=== PATIENT | female | born 1980 | race Caucasian/White ===

== ENCOUNTER 2016-12-01 09:57 | Emergency (ER) | payer MEDICAID ==
[~2016-12-01] VITALS: Ht 170.2 cm; Wt 78.0 kg
[~2016-12-01 09:57] MED LIST: CLON.5 PO; CYCL1TAB29 PO; METF500T PO; NAPR500T PO
[2016-12-01 10:02] VITALS: BP 122/86; PULSE 91; RESP 16; TEMP 98.4; O2SAT 97
[2016-12-01] MEDS ORDERED: HYDR-3533 PO (10:39)
[2016-12-01] MEDS ORDERED: SODIUM CHLOR 0.9% 1000 ML INJ 1,000 ML IV SCH (10:58)
[2016-12-01] MEDS ORDERED: SODIUM CHLORIDE 0.9% FLUSH 5 ML FLUSH IVF PRN (11:00)
[2016-12-01] MEDS ORDERED: ONDANSETRON HCL 4 MG/2 ML VIAL IVP ONE (11:00)
[2016-12-01] MEDS ORDERED: KETOROLAC TROMETHAMINE 30 MG/ML (IVP) VIAL IVP ONE (11:00)
[2016-12-01] MEDS ORDERED: MORPHINE SULFATE 4 MG/ML INJ IV PUSH ONE ×2 (11:00→12:15)
--- NOTE | 2016-12-01 11:02 | PD ---
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 The patient states she developed abdominal pain last night , and abdominal pain is located suprapubic and right lower quadrant, radiates to the right upper quadrant, associated with nausea, but she denies any vomiting. The patient denies any vaginal discharge, dysuria, frequency, urgency , or vaginal bleeding. The patient does have an IUD in place, last missed a cycle was 4 years ago. Patient is . Patient did eat cookies last night, but does not have much of an appetite this morning. She does have a history of previous section, denies any known history of gallstones. She does have a history of nephrolithiasis with different symptoms in the past. Symptoms are moderate, there are no current alleviating or exacerbating factors. PFSH Past Medical History Anxiety: Yes Diabetes: Yes Patient Takes Glucophage: Yes ?: Not LMP: IUD-DOES NOT GET Past Surgical History Section: Yes Social History Alcohol Use: Yes Tobacco Use: Yes Substance Use: No Allergies-Medications (Allergen,Severity, Reaction): Coded Allergies: Latex (Verified Allergy, Severe, 12/01/16) Reported Meds & Prescriptions Reported Meds & Active Scripts Active Metformin (Metformin HCl) 500 Mg Tab 500 Mg PO DIRECTED Take daily with evening meal. May advance to taking twice a day (w/ morning meal) after two weeks. Klonopin (Clonazepam) 0.5 Mg Tab 0.5 Mg PO HS Reported Lortab (Hydrocodone-Acetaminophen) 5-325 Mg Tab 1 Tab PO Q4H PRN Review of Systems Except as stated in HPI: all other systems reviewed are Neg General / Constitutional: No: Fever Cardiovascular: No: Chest Pain or Discomfort Respiratory: No: Shortness of Breath Gastrointestinal: Positive: Nausea, Abdominal Pain, No: Vomiting, Diarrhea Genitourinary: Positive: Pelvic Pain, No: Urgency, Frequency, Dysuria, Hematuria, Discharge, Vaginal Bleeding Skin: No Rash Physical Exam Narrative GENERAL: Awake, alert, pleasant 36-year-old female who appears her stated age and is in no acute respiratory distress. SKIN: Warm and dry. HEAD: Atraumatic. Normocephalic. EYES: No injection or drainage. ENT: No nasal bleeding or discharge. Mucous membranes pink and moist. NECK: Trachea midline. No JVD. CARDIOVASCULAR: Regular rate and rhythm. No murmur appreciated. RESPIRATORY: No accessory muscle use. Clear to auscultation. Breath sounds equal bilaterally. GASTROINTESTINAL: Abdomen soft, tender palpation right lower quadrant and suprapubic. Mild guarding. No rebound tenderness or rigidity noted. Back: No CVA tenderness. MUSCULOSKELETAL: No obvious deformities. No clubbing. No cyanosis. No edema. NEUROLOGICAL: Awake and alert. No obvious cranial nerve deficits. Motor grossly within normal limits. Normal speech. PSYCHIATRIC: Appropriate mood and affect; insight and judgment normal. Data Data Last Documented VS Vital Signs Date Time Temp Pulse Resp B/P Pulse Ox O2 Delivery O2 Flow Rate FiO2 12/01/16 11:45 99 Room Air 12/01/16 10:02 98.4 91 16 122/86 Orders Complete Blood Count With Diff (12/01/16 10:58) Comprehensive Metabolic Panel (12/01/16 10:58) Lipase (12/01/16 10:58) Urinalysis - C+S If Indicated (12/01/16 10:58) Ct Abd/Pel W/O Iv Contrast (12/01/16 10:58) Iv Access Insert/Monitor (12/01/16 10:58) Ecg Monitoring (12/01/16 10:58) Oximetry (12/01/16 10:58) Morphine Inj (Morphine Inj) (12/01/16 11:00) Ondansetron Inj (Zofran Inj) (12/01/16 11:00) Sodium Chlor 0.9% 1000 Ml Inj (Ns 1000 M (12/01/16 10:58) Sodium Chloride 0.9% Flush (Ns Flush) (12/01/16 11:00) Ketorolac Inj (Toradol Inj) (12/01/16 11:00) Ed Urine Pregnancytest Poc (12/01/16 10:58) Urine Culture (12/01/16 11:15) Wet Prep Profile (12/01/16 12:04) Morphine Inj (Morphine Inj) (12/01/16 12:15) Labs Laboratory Tests Test 12/01/16 12/01/16 11:15 12:17 White Blood Count 10.3 TH/MM3 Red Blood Count 4.59 MIL/MM3 Hemoglobin 14.0 GM/DL Hematocrit 41.3 % Mean Corpuscular Volume 90.1 FL Mean Corpuscular Hemoglobin 30.6 PG Mean Corpuscular Hemoglobin 34.0 % Concent Red Cell Distribution Width 11.8 % Platelet Count 275 TH/MM3 Mean Platelet Volume 8.2 FL Neutrophils (%) (Auto) 65.4 % Lymphocytes (%) (Auto) 26.7 % Monocytes (%) (Auto) 5.0 % Eosinophils (%) (Auto) 2.3 % Basophils (%) (Auto) 0.6 % Neutrophils # (Auto) 6.7 TH/MM3 Lymphocytes # (Auto) 2.8 TH/MM3 Monocytes # (Auto) 0.5 TH/MM3 Eosinophils # (Auto) 0.2 TH/MM3 Basophils # (Auto) 0.1 TH/MM3 CBC Comment DIFF FINAL Differential Comment Urine Color YELLOW Urine Turbidity CLEAR Urine pH 5.5 Urine Specific [place] 1.021 Urine Protein NEG mg/dL Urine Glucose (UA) NEG mg/dL Urine Ketones NEG mg/dL Urine Occult Blood NEG Urine Nitrite POS Urine Bilirubin NEG Urine Leukocyte Esterase NEG Urine WBC 0-2 /hpf Urine Squamous Epithelial 0-5 /hpf Cells Urine Bacteria MOD /hpf Urine Mucus OCC /lpf Microscopic Urinalysis Comment CULTURE INDICATED Sodium Level 141 MEQ/L Potassium Level 4.0 MEQ/L Chloride Level 106 MEQ/L Carbon Dioxide Level 28.8 MEQ/L Anion Gap 6 MEQ/L Blood Urea Nitrogen 17 MG/DL Creatinine 1.00 MG/DL Estimat Glomerular Filtration 63 ML/MIN Rate Random Glucose 138 MG/DL Calcium Level 8.8 MG/DL Total Bilirubin 0.5 MG/DL Aspartate Amino Transf 13 U/L (AST/SGOT) Alanine Aminotransferase 40 U/L (ALT/SGPT) Alkaline Phosphatase 92 U/L Total Protein 7.4 GM/DL Albumin 3.9 GM/DL Lipase 118 U/L Clue Cells (Wet Prep) PRESENT Vaginal Trichomonas (Wet Prep) NONE SEEN Vaginal Yeast (Wet Prep) NONE SEEN MDM Medical Decision Making Medical Screen Exam Complete: Yes Emergency Medical Condition: Yes Medical Record Reviewed: Yes Interpretation(s) Laboratory Tests Test 12/01/16 12/01/16 11:15 12:17 White Blood Count 10.3 TH/MM3 Red Blood Count 4.59 MIL/MM3 Hemoglobin 14.0 GM/DL Hematocrit 41.3 % Mean Corpuscular Volume 90.1 FL Mean Corpuscular Hemoglobin 30.6 PG Mean Corpuscular Hemoglobin 34.0 % Concent Red Cell Distribution Width 11.8 % Platelet Count 275 TH/MM3 Mean Platelet Volume 8.2 FL Neutrophils (%) (Auto) 65.4 % Lymphocytes (%) (Auto) 26.7 % Monocytes (%) (Auto) 5.0 % Eosinophils (%) (Auto) 2.3 % Basophils (%) (Auto) 0.6 % Neutrophils # (Auto) 6.7 TH/MM3 Lymphocytes # (Auto) 2.8 TH/MM3 Monocytes # (Auto) 0.5 TH/MM3 Eosinophils # (Auto) 0.2 TH/MM3 Basophils # (Auto) 0.1 TH/MM3 CBC Comment DIFF FINAL Differential Comment Urine Color YELLOW Urine Turbidity CLEAR Urine pH 5.5 Urine Specific [place] 1.021 Urine Protein NEG mg/dL Urine Glucose (UA) NEG mg/dL Urine Ketones NEG mg/dL Urine Occult Blood NEG Urine Nitrite POS Urine Bilirubin NEG Urine Leukocyte Esterase NEG Urine WBC 0-2 /hpf Urine Squamous Epithelial 0-5 /hpf Cells Urine Bacteria MOD /hpf Urine Mucus OCC /lpf Microscopic Urinalysis Comment CULTURE INDICATED Sodium Level 141 MEQ/L Potassium Level 4.0 MEQ/L Chloride Level 106 MEQ/L Carbon Dioxide Level 28.8 MEQ/L Anion Gap 6 MEQ/L Blood Urea Nitrogen 17 MG/DL Creatinine 1.00 MG/DL Estimat Glomerular Filtration 63 ML/MIN Rate Random Glucose 138 MG/DL Calcium Level 8.8 MG/DL Total Bilirubin 0.5 MG/DL Aspartate Amino Transf 13 U/L (AST/SGOT) Alanine Aminotransferase 40 U/L (ALT/SGPT) Alkaline Phosphatase 92 U/L Total Protein 7.4 GM/DL Albumin 3.9 GM/DL Lipase 118 U/L Clue Cells (Wet Prep) PRESENT Vaginal Trichomonas (Wet Prep) NONE SEEN Vaginal Yeast (Wet Prep) NONE SEEN Differential Diagnosis Differential diagnosis includes appendicitis, ovarian torsion, ovarian cyst, ectopic , pyelonephritis, nephrolithiasis, UTI, PID, cervicitis. Narrative Course IV was established, labs are drawn and sent, and the patient was placed on cardiac telemetry monitoring and continuous pulse oximetry monitoring. Bedside UA test was obtained and UA was sent to lab. The patient was administered morphine, Zofran, Toradol, and IV fluids for her symptoms. Laboratory evaluation is essentially unremarkable. UA does reveal nitrites and bacteria, but no wbc's. CT of the abdomen and pelvis is negative, no evidence of appendicitis, nephrolithiasis, diverticulitis, or free fluid. Pelvic exam was performed, IUD appears in place, cervical os is closed with IUD string visible, brown discharge in the posterior vaginal vault, wet prep was sent to lab. Wet prep is positive for bacterial vaginosis, therefore, patient will be treated with Flagyl twice a day. She is advised no drinking alcohol while on Flagyl, pain medications as directed, to follow-up with her primary physician. The patient will be provided a copy of her CT and lab results at discharge. Diagnosis Primary Impression: Bacterial vaginosis Additional Impression: Abdominal pain Qualified Code: R10.30 - Lower abdominal pain Patient Instructions: General Instructions Additional Instructions: Medications as directed. Follow-up with her primary physician. Return if symptoms worsen or progress. Med/Other Pt SpecificInfo: Prescription(s) given Scripts Hydrocodone-Acetaminophen ([place])5-325 mg Tab1 Tab PO Q6H PRN (PAIN) #12 TAB Ref 0 Prov:Dean Alejandre MD 12/01/16 Ibuprofen 600 Mg [id number] Mg PO Q6H PRN (Pain/Inflammation) #20 TAB Ref 0 Prov:Dean Alejandre MD 12/01/16 Metronidazole (Flagyl)500 Mg [id number] Mg PO BID 7 Days Ref 0 Prov:Dean Alejandre MD 12/01/16 Disposition: 01 DISCHARGE HOME Condition: Stable Dean Alejandre MD Dec 01, 2016 11:02
[2016-12-01 11:36] LABS: AUTOMATED NEUTROPHIL # 6.7 TH/MM3 (1.8-7.7); BASOPHIL # 0.1 TH/MM3 (0-0.2); BASOPHIL % 0.6 % (0.0-2.0); EOSINOPHIL # 0.2 TH/MM3 (0-0.4); EOSINOPHIL % 2.3 % (0.0-4.0); HEMATOCRIT 41.3 % (35.0-46.0); HEMO FLAGS DIFF FINAL; LYMPH % 26.7 % (9.0-44.0); LYMPHOCYTE # 2.8 TH/MM3 (1.0-4.8); MEAN CELL VOLUME 90.1 FL (80.0-100.0); MEAN CORPUSCULAR HEMOGLOBIN 30.6 PG (27.0-34.0); NEUT % 65.4 % (16.0-70.0); PLATELET COUNT 275 TH/MM3 (150-450); RED BLOOD COUNT 4.59 MIL/MM3 (4.00-5.30); RED CELL DISTRIBUTION WIDTH 11.8 % (11.6-17.2); WHITE BLOOD COUNT 10.3 TH/MM3 (4.0-11.0)
[2016-12-01 11:38] LABS: BLOOD, URINE NEG (NEG); GLUCOSE,URINE NEG (NEG); KETONE, URINE NEG (NEG); NITRITE,URINE POS (NEG); PH, URINE 5.5 (5.0-8.5)
[2016-12-01 11:39] LABS: URINE COLOR YELLOW (YELLW/STRAW)
[2016-12-01 11:43] LABS: MUCUS URINE OCC /lpf (OCC); WBC, URINE 0-2 /hpf (0-5)
[2016-12-01 11:44] LABS: BACTERIA, URINE MOD /hpf; COMMENT (UR) CULTURE INDICATED; CULTURE IF INDICATED CULTURE INDICATED; SQUAMOUS EPITHELIAL CELL URINE 0-5 /hpf (0-5)
[2016-12-01 11:45] VITALS: O2SAT 99
[2016-12-01 11:46] LABS: CHLORIDE 106 MEQ/L (98-107); SODIUM (NA) 141 MEQ/L (136-145)
--- NOTE | 2016-12-01 11:49 | RADHPO ---
EXAM DATE/TIME: 12/01/2016 11:23 [facility] COMPARISON: No previous studies available for comparison. INDICATIONS : Lower abdominal pain and nausea since yesterday. ORAL CONTRAST: No oral contrast ingested. RADIATION DOSE: 9.51 CTDIvol (mGy) MEDICAL HISTORY : Diabetes. SURGICAL HISTORY : section. IUD. ENCOUNTER: Initial ACUITY: 2 days PAIN SCALE: 3/10 LOCATION: Lower quadrant TECHNIQUE: Volumetric scanning of the abdomen and pelvis was performed. Using automated exposure control and ad justment of the mA and/or kV according to patient size, radiation dose was kept as low as reasonably achievable to obtain optimal diagnostic quality images. FINDINGS: The lung bases are clear. There is no pericardial effusion. The liver, spleen, pancreas and adrenal glands are unremarkable. Right and left kidneys appear normal. Region of the cecum and terminal ileum appear unremarkable. There is a normal sized appendix. Pelvic contents are normal. IUD is in place. There is no evidence for diverticulitis. Abdominal wall is intact. There is no free fluid. Bowel gas pattern is unremarkable. CONCLUSION: 1. IUD in place. 2. I do not see an etiology for the patient's abdominal pain and nausea. Dino Fatima MD FACR on December 01, 2016 at 11:42 Board Certified Radiologist. This report was verified electronically.
[2016-12-01 11:50] LABS: ANION GAP 6 MEQ/L (5-15); BICARBONATE 28.8 MEQ/L (21.0-32.0); BLOOD UREA NITROGEN 17 MG/DL (7-18)
[2016-12-01 11:53] LABS: ALT (GPT) 40 U/L (10-53); AST (GOT) 13 U/L (15-37); GLOMERULAR FILTRATION RATE 63 ML/MIN (>89)
[2016-12-01 11:54] LABS: TOTAL BILIRUBIN ADULT 0.5 MG/DL (0.2-1.0)
[2016-12-01 11:56] LABS: ALKALINE PHOSPHATASE 92 U/L (45-117)
[2016-12-01] MEDS ORDERED: METR-1 PO (12:51)
[2016-12-01] MEDS ORDERED: IBUP-232 PO (12:51)
[2016-12-01] MEDS ORDERED: NORC5TAB PO (12:51)
[2016-12-01 13:43] VITALS: BP 100/65
[2016-12-06] MEDS ORDERED: CLON.5 PO (17:42)
[2017-02-03] MEDS ORDERED: SITA1TAB2 PO (16:03)
[2017-02-03] MEDS ORDERED: DULO1CAP2 PO (16:09)
[2017-02-03] MEDS ORDERED: CLON1TAB PO (16:11)
[2017-02-24] MEDS ORDERED: CITA20TA4 PO (15:56)
[2017-03-03] MEDS ORDERED: CITA20TA4 PO (15:30)
== END 2016-12-01 14:04 | disposition home or self-care (01) ==
LOC: PHED 09:57
DX: N76.0 Acute vaginitis (principal); B96.20 Unspecified Escherichia coli [E. coli] as the cause of diseases classified elsewhere; R10.30 Lower abdominal pain, unspecified; R11.0 Nausea
CPT/HCPCS: 74176; 80053; 81001; 83690; 84703; 85025; 87077; 87086; 87186; 87210; 96374; 96375; 96376; 99284; J1885; J2270; J2405; J7030

== ENCOUNTER 2017-01-02 10:25 | Emergency (ER) | payer MEDICAID ==
[~2017-01-02] VITALS: Ht 170.2 cm; Wt 76.5 kg
[~2017-01-02 10:25] MED LIST changes: -CYCL1TAB29 PO; +IBUP-232 PO; +METR-1 PO; -NAPR500T PO
[2017-01-02 10:29] VITALS: BP 151/117; PULSE 101; RESP 18; TEMP 98.6; O2SAT 97
[2017-01-02] MEDS ORDERED: SODIUM CHLOR 0.9% 1000 ML INJ 1,000 ML IV SCH (11:00)
[2017-01-02] MEDS ORDERED: ERYTOIN10 LEFT EYE (11:09)
[2017-01-02] MEDS ORDERED: NAPR500 PO (11:09)
[2017-01-02] MEDS ORDERED: ZITHTAB PO (11:09)
--- NOTE | 2017-01-02 11:09 | PD ---
HPI Chief Complaint: Cold / Flu Symptoms Time Seen by Provider: 10:34 Travel History International Travel<30 days: No Contact w/Intl Traveler<30days: No Traveled to known affect area: No History of Present Illness HPI So 36-year-old woman who presents to the emergency department complaining of being sick for the past month and a half. She started to develop cough, sore throat a little bit of fevers initially. Fevers are resolved. She has persistent hard cough. She also has a lot of congestion. Cough is productive of thick phlegm. She also developed some right flank pain this morning. She lost her voice today. She has some vomiting in the morning that she attributes to the thick phlegm. She otherwise has been feeling generally ill. Today she also started to get some irritation and inflammation in her left eye. No sick contacts. Only medical history is diabetes. No other complaints. History Past Medical History Narrative Medical Diabetes Tetanus Vaccination: Unknown Influenza Vaccination: No LMP: IUD/not menstruating Social History Alcohol Use: Yes (Rarely) Tobacco Use: Yes (1/2 PPD) Allergies-Medications (Allergen,Severity, Reaction): Coded Allergies: Latex (Verified Allergy, Severe, 01/02/17) Reported Meds & Prescriptions Reported Meds & Active Scripts Active Erythromycin Opth Oint 5 Mg/Gm Oint 1 Applic LEFT EYE QID Zithromax Z-Nahun (Azithromycin) 250 Mg Dspk 250 Mg PO DIRECTED 500 MG (2 tabs) day 1, then 1 tab days 2-5. Naprosyn (Naproxen) 500 Mg Tab 500 Mg PO BID PRN Metformin (Metformin HCl) 500 Mg Tab 500 Mg PO DIRECTED Take daily with evening meal. May advance to taking twice a day (w/ morning meal) after two weeks. Review of Systems Except as stated in HPI: all other systems reviewed are Neg Physical Exam Narrative GENERAL: Well-appearing 36-year-old woman, no acute distress. SKIN: Focused skin assessment warm/dry. HEAD: Atraumatic. Normocephalic. EYES: Left eye with a little bit of scleral injection. ENT: No nasal bleeding or discharge. Mucous membranes pink and moist. NECK: Trachea midline. No JVD. CARDIOVASCULAR: Regular rate and rhythm. No murmur appreciated. RESPIRATORY: No accessory muscle use. Clear to auscultation. Breath sounds equal bilaterally. GASTROINTESTINAL: Abdomen flat and soft. Some tenderness to palpation of the right costal margin. NEUROLOGICAL: Awake and alert. No obvious cranial nerve deficits. Motor grossly within normal limits. Normal speech. PSYCHIATRIC: Appropriate mood and affect; insight and judgment normal. Data Data Last Documented VS Vital Signs Date Time Temp Pulse Resp B/P Pulse Ox O2 Delivery O2 Flow Rate FiO2 01/02/17 10:35 101 18 97 Room Air 01/02/17 10:29 98.6 151/117 Orders Complete Blood Count With Diff (01/02/17 10:49) Comprehensive Metabolic Panel (01/02/17 10:49) Lipase (01/02/17 10:49) Iv Access Insert/Monitor (01/02/17 10:49) Beta Hcg (Quant/Titer) (01/02/17 10:49) Ed Poc Ultrasound (01/02/17 ) Chest, Pa & Lat (01/02/17 ) Sodium Chlor 0.9% 1000 Ml Inj (Ns 1000 M (01/02/17 11:00) Ketorolac Inj (Toradol Inj) (01/02/17 11:15) Labs Laboratory Tests Test 01/02/17 10:55 White Blood Count 14.2 TH/MM3 Red Blood Count 4.47 MIL/MM3 Hemoglobin 13.9 GM/DL Hematocrit 40.1 % Mean Corpuscular Volume 89.7 FL Mean Corpuscular Hemoglobin 31.0 PG Mean Corpuscular Hemoglobin 34.6 % Concent Red Cell Distribution Width 11.8 % Platelet Count 277 TH/MM3 Mean Platelet Volume 8.3 FL Neutrophils (%) (Auto) 72.8 % Lymphocytes (%) (Auto) 20.7 % Monocytes (%) (Auto) 5.1 % Eosinophils (%) (Auto) 1.1 % Basophils (%) (Auto) 0.3 % Neutrophils # (Auto) 10.4 TH/MM3 Lymphocytes # (Auto) 2.9 TH/MM3 Monocytes # (Auto) 0.7 TH/MM3 Eosinophils # (Auto) 0.2 TH/MM3 Basophils # (Auto) 0.0 TH/MM3 CBC Comment DIFF FINAL Differential Comment Sodium Level 140 MEQ/L Potassium Level 4.0 MEQ/L Chloride Level 105 MEQ/L Carbon Dioxide Level 24.0 MEQ/L Anion Gap 11 MEQ/L Blood Urea Nitrogen 16 MG/DL Creatinine 0.93 MG/DL Estimat Glomerular Filtration 68 ML/MIN Rate Random Glucose 155 MG/DL Calcium Level 9.0 MG/DL Total Bilirubin 0.7 MG/DL Aspartate Amino Transf 17 U/L (AST/SGOT) Alanine Aminotransferase 45 U/L (ALT/SGPT) Alkaline Phosphatase 102 U/L Total Protein 7.5 GM/DL Albumin 3.9 GM/DL Lipase 123 U/L Human Chorionic Gonadotropin, LESS THAN 1 Quant MIU/ML MDM Medical Decision Making Medical Screen Exam Complete: Yes Emergency Medical Condition: Yes Interpretation(s) LABS: CBC remarkable for mild leukocytosis. CMP is unremarkable. Lipase is normal HCG negative Chest x-ray negative Differential Diagnosis URI, cough, congestion, bronchitis, other Narrative Course Medical decision making 36-year-old woman presents to the emergency department complaining of a month and a half of cough congestion sore throat associated with now some loss of voice and some mild conjunctival injection. Suspect bronchitis and upper respiratory infection. Symptoms been ongoing for month and a half. She has some tenderness in the right upper quadrant. I checked an ultrasound the gallbladder which is unremarkable. We'll check an x-ray, labs, IV fluids, likely antibiotic treatment for acute bronchitis. We'll give her prescription for erythromycin of her conjunctivitis symptoms worsen. Diagnosis Primary Impression: Bronchitis Additional Instructions: Take Naprosyn as needed for pain and body aches. Take azithromycin as prescribed. Use erythromycin eye ointment if you have any worsening eye redness, or eye drainage. Drink plenty of fluids stay well-hydrated. Return to the emergency department new or worsening symptoms. Follow-up with your primary doctor in 1-10 days every not feeling completely well. Med/Other Pt SpecificInfo: Prescription(s) given Scripts Erythromycin Opth Oint 5 Mg/Gm Oint1 Applic LEFT EYE QID #1 TUBE Prov:Jesse Browning MD 01/02/17 Azithromycin (Zithromax Z-Nahun)250 Mg [id number] Mg PO DIRECTED #1 DSPK 500 MG (2 tabs) day 1, then 1 tab days 2-5. Prov:Jesse Browning MD 01/02/17 Naproxen (Naprosyn)500 Mg [id number] Mg PO BID PRN (PAIN SCALE 1 TO 10) #20 TAB Prov:Jesse Browning MD 01/02/17 Disposition: 01 DISCHARGE HOME Condition: Stable Jesse Browning MD Jan 02, 2017 11:09
[2017-01-02] MEDS ORDERED: KETOROLAC TROMETHAMINE 30 MG/ML (IVP) VIAL IV PUSH ONE (11:15)
--- NOTE | 2017-01-02 11:24 | RADHPO ---
EXAM DATE/TIME: 01/02/2017 10:54 [facility] COMPARISON: CHEST SINGLE AP, December 05, 2015, 19:41. INDICATIONS : Shortness of breath, cough. MEDICAL HISTORY : Diabetes mellitus type II. Smoker. SURGICAL HISTORY : None. ENCOUNTER: Initial ACUITY: 1 month PAIN SCORE: 0/10 LOCATION: Bilateral chest FINDINGS: PA and lateral views of the chest demonstrate a normal-sized cardiac silhouette. There is no effusion , consolidation, or pneumothorax. The bones and soft tissues demonstrate no acute abnormality. CONCLUSION: Normal chest x-ray Owen Lund MD on January 02, 2017 at 11:22 Board Certified Radiologist. This report was verified electronically.
[2017-01-02 11:41] LABS: AUTOMATED NEUTROPHIL # 10.4 TH/MM3 (1.8-7.7); BASOPHIL % 0.3 % (0.0-2.0); EOSINOPHIL # 0.2 TH/MM3 (0-0.4); EOSINOPHIL % 1.1 % (0.0-4.0); HEMATOCRIT 40.1 % (35.0-46.0); HEMO FLAGS DIFF FINAL; LYMPH % 20.7 % (9.0-44.0); LYMPHOCYTE # 2.9 TH/MM3 (1.0-4.8); MEAN CELL VOLUME 89.7 FL (80.0-100.0); MEAN CORPUSCULAR HGB CONC 34.6 % (32.0-36.0); MONO % 5.1 % (0.0-8.0); NEUT % 72.8 % (16.0-70.0); PLATELET COUNT 277 TH/MM3 (150-450); RED BLOOD COUNT 4.47 MIL/MM3 (4.00-5.30); RED CELL DISTRIBUTION WIDTH 11.8 % (11.6-17.2); WHITE BLOOD COUNT 14.2 TH/MM3 (4.0-11.0)
[2017-01-02 11:43] LABS: CHLORIDE 105 MEQ/L (98-107); SODIUM (NA) 140 MEQ/L (136-145)
[2017-01-02 11:47] LABS: ANION GAP 11 MEQ/L (5-15); BLOOD UREA NITROGEN 16 MG/DL (7-18)
[2017-01-02 11:50] LABS: ALT (GPT) 45 U/L (10-53); AST (GOT) 17 U/L (15-37); GLOMERULAR FILTRATION RATE 68 ML/MIN (>89)
[2017-01-02 11:51] LABS: TOTAL BILIRUBIN ADULT 0.7 MG/DL (0.2-1.0)
[2017-01-02 11:53] LABS: ALKALINE PHOSPHATASE 102 U/L (45-117)
[2017-01-02 11:55] LABS: BETA HCG QUANT LESS THAN 1 MIU/ML (0-5)
[2017-01-02 12:10] VITALS: BP 125/67; PULSE 76; RESP 16; O2SAT 100
[2017-02-03] MEDS ORDERED: SITA1TAB2 PO (16:03)
[2017-02-03] MEDS ORDERED: DULO1CAP2 PO (16:09)
[2017-02-03] MEDS ORDERED: CLON1TAB PO (16:11)
[2017-02-24] MEDS ORDERED: CITA20TA4 PO (15:56)
[2017-03-03] MEDS ORDERED: CITA20TA4 PO (15:30)
== END 2017-01-02 12:15 | disposition home or self-care (01) ==
LOC: PHED 10:25
DX: J40 Bronchitis, not specified as acute or chronic (principal); R06.02 Shortness of breath; E11.9 Type 2 diabetes mellitus without complications; F17.210 Nicotine dependence, cigarettes, uncomplicated
CPT/HCPCS: 71020; 80053; 83690; 84702; 85025; 96361; 96374; 99283; J1885; J7030

== ENCOUNTER 2017-02-21 22:45 | Emergency (ER) | payer MEDICAID ==
[~2017-02-21] VITALS: Ht 167.6 cm; Wt 85.0 kg
[~2017-02-21 22:45] MED LIST changes: -CLON.5 PO; +CLON1TAB PO; +DULO1CAP2 PO; -IBUP-232 PO; -METF500T PO; -METR-1 PO; +NAPR500 PO; +SITA1TAB2 PO
[2017-02-21 23:07] VITALS: BP 127/86; PULSE 112; RESP 18; TEMP 98.2; O2SAT 98
--- NOTE | 2017-02-21 23:14 | PD ---
HPI . Head injury Chief Complaint: head injury Time Seen by Provider: 23:02 Travel History International Travel<30 days: No Contact w/Intl Traveler<30days: No History of Present Illness HPI Patient presents to us via [facility] after a reported head injury. She states that she was standing on her bed and she fell and struck her head on the ceiling fan. She has reportedly had several syncopal events since this. The patient is very angry and is not willing to cooperate for history and physical. Family reports that the patient old gun to her head threatening to kill herself. Family further reports that she took too many of her benzodiazepine pills. PFSH Past Medical History Hx Anticoagulant Therapy: No Anxiety: Yes Diabetes: Yes (Type 2) Past Surgical History Section: Yes Social History Alcohol Use: Yes (Rarely) Tobacco Use: Yes (1/2 PPD) Substance Use: No Allergies-Medications (Allergen,Severity, Reaction): Coded Allergies: Latex (Verified Allergy, Severe, 02/03/17) Reported Meds & Prescriptions Reported Meds & Active Scripts Active Januvia (Sitagliptin Phosphate) 100 Mg Tab 100 Mg PO DAILY Reported Klonopin (Clonazepam) 0.5 Mg Tab 0.5 Mg PO HS Review of Systems ROS Limitations: Uncooperative Physical Exam Narrative GENERAL: The patient is awake and alert. She is very angry and uncooperative. SKIN: Warm and dry. Some superficial scrapes noted on the left wrist. HEAD: Contusion palpated on the left side of her scalp. Normocephalic. EYES: Pupils equal and round. Extraocular movements are intact. ENT: No nasal bleeding or discharge. Mucous membranes pink and moist. NECK: Trachea midline. Neck is currently immobilized with a cervical collar. CARDIOVASCULAR: Regular rate and rhythm. Heart sounds are normal. RESPIRATORY: No accessory muscle use. GASTROINTESTINAL: Abdomen soft, non-tender, nondistended. MUSCULOSKELETAL: No obvious deformities. No edema. She does have some tenderness to percussion in her low back. NEUROLOGICAL: Awake and alert. No obvious cranial nerve deficits. Moves all 4 extremities equally. PSYCHIATRIC: Very angry and uncooperative. Patient denies any homicidal or suicidal ideation. Data Data Last Documented VS Vital Signs Date Time Temp Pulse Resp B/P Pulse Ox O2 Delivery O2 Flow Rate FiO2 02/22/17 01:34 58 18 121/76 98 Room Air 02/21/17 23:07 98.2 Orders Complete Blood Count With Diff (02/21/17 23:02) Comprehensive Metabolic Panel (02/21/17 23:02) Psych Screen (02/21/17 23:02) Restraints Non-Violent JEREMIAH.Q3H (02/21/17 23:02) Drug Screen, Random Urine (02/21/17 23:02) Alcohol (Ethanol) (02/21/17 23:02) Ct Brain W/O Iv Contrast(Rout) (02/21/17 23:02) Ct Cerv Spine W/O Contrast (02/21/17 23:02) Ed Urine Pregnancytest Poc (02/21/17 23:02) Urinalysis - C+S If Indicated (02/22/17 00:13) Labs Laboratory Tests Test 02/21/17 23:10 White Blood Count 22.5 TH/MM3 Red Blood Count 4.64 MIL/MM3 Hemoglobin 14.5 GM/DL Hematocrit 42.2 % Mean Corpuscular Volume 90.8 FL Mean Corpuscular Hemoglobin 31.3 PG Mean Corpuscular Hemoglobin 34.5 % Concent Red Cell Distribution Width 12.8 % Platelet Count 243 TH/MM3 Mean Platelet Volume 9.1 FL Neutrophils (%) (Auto) 84.8 % Lymphocytes (%) (Auto) 9.4 % Monocytes (%) (Auto) 5.0 % Eosinophils (%) (Auto) 0.5 % Basophils (%) (Auto) 0.3 % Neutrophils # (Auto) 19.0 TH/MM3 Lymphocytes # (Auto) 2.1 TH/MM3 Monocytes # (Auto) 1.1 TH/MM3 Eosinophils # (Auto) 0.1 TH/MM3 Basophils # (Auto) 0.1 TH/MM3 CBC Comment DIFF FINAL Differential Comment Urine Opiates Screen NEG Urine Barbiturates Screen NEG Urine Amphetamines Screen NEG Urine Benzodiazepines Screen NEG Urine Cocaine Screen NEG Urine Cannabinoids Screen NEG Urine Color YELLOW Urine Turbidity HAZY Urine pH 5.0 Urine Specific [place] 1.030 Urine Protein TRACE mg/dL Urine Glucose (UA) 1000 mg/dL Urine Ketones TRACE mg/dL Urine Occult Blood NEG Urine Nitrite NEG Urine Bilirubin NEG Urine Urobilinogen 2.0 MG/DL Urine Leukocyte Esterase NEG Urine RBC LESS THAN 1 /hpf Urine WBC 1 /hpf Urine Squamous Epithelial 1 /hpf Cells Urine Calcium Oxalate Crystals FEW /hpf Urine Mucus FEW /lpf Microscopic Urinalysis Comment CULT NOT INDICATED Sodium Level 140 MEQ/L Potassium Level 3.8 MEQ/L Chloride Level 106 MEQ/L Carbon Dioxide Level 23.3 MEQ/L Anion Gap 11 MEQ/L Blood Urea Nitrogen 18 MG/DL Creatinine 1.31 MG/DL Estimat Glomerular Filtration 46 ML/MIN Rate Random Glucose 205 MG/DL Calcium Level 9.1 MG/DL Total Bilirubin 0.6 MG/DL Aspartate Amino Transf 17 U/L (AST/SGOT) Alanine Aminotransferase 33 U/L (ALT/SGPT) Alkaline Phosphatase 105 U/L Total Protein 7.6 GM/DL Albumin 4.1 GM/DL Ethyl Alcohol Level LESS THAN 3 MG/DL MDM Medical Decision Making Medical Screen Exam Complete: Yes Emergency Medical Condition: Yes Differential Diagnosis My differential diagnosis of head trauma includes but is not limited to scalp contusion, concussion, intracerebral hemorrhage. Differential diagnosis includes but is not limited to depression with suicidal gesture, suicide attempt, suicidal ideation, attention seeking behavior. Narrative Course This patient presents with a chief complaint of head injury. She has reportedly had several episodes of syncope. She has also reportedly overdosed on a benzodiazepine. Furthermore, she has reportedly had a significant suicidal gesture in that she was holding rebound. She has also cut her left wrist. She is extremely angry and uncooperative. For these reasons, I have signed a Hair Act. CBC & BMP Diagram 02/21/17 23:10 UA and drug screen are negative. CT of her head and C-spine are negative. This patient is medically clear for psychiatric evaluation. Diagnosis Primary Impression: Scalp contusion Additional Impression: Suicide gesture Qualified Code: X83.8XXA - Suicide gesture, initial encounter Condition: Stable Nanda David MD Feb 21, 2017 23:14
[2017-02-21] MEDS ORDERED: CLON.5 PO (23:35)
[2017-02-21 23:46] LABS: BASOPHIL # 0.1 TH/MM3 (0-0.2); BASOPHIL % 0.3 % (0.0-2.0); EOSINOPHIL # 0.1 TH/MM3 (0-0.4); EOSINOPHIL % 0.5 % (0.0-4.0); HEMATOCRIT 42.2 % (35.0-46.0); HEMO FLAGS DIFF FINAL; LYMPH % 9.4 % (9.0-44.0); LYMPHOCYTE # 2.1 TH/MM3 (1.0-4.8); MEAN CELL VOLUME 90.8 FL (80.0-100.0); MEAN CORPUSCULAR HEMOGLOBIN 31.3 PG (27.0-34.0); MEAN CORPUSCULAR HGB CONC 34.5 % (32.0-36.0); NEUT % 84.8 % (16.0-70.0); PLATELET COUNT 243 TH/MM3 (150-450); RED BLOOD COUNT 4.64 MIL/MM3 (4.00-5.30); RED CELL DISTRIBUTION WIDTH 12.8 % (11.6-17.2); WHITE BLOOD COUNT 22.5 TH/MM3 (4.0-11.0)
[2017-02-21 23:55] LABS: AMPHETAMINE, URINE NEG (NEG); BARBITURATES, URINE NEG (NEG); COCAINE, URINE NEG (NEG)
[2017-02-22 00:04] LABS: ANION GAP 11 MEQ/L (5-15); AST (GOT) 17 U/L (15-37); BICARBONATE 23.3 MEQ/L (21.0-32.0); BLOOD UREA NITROGEN 18 MG/DL (7-18); CHLORIDE 106 MEQ/L (98-107); GLOMERULAR FILTRATION RATE 46 ML/MIN (>89); POTASSIUM 3.8 MEQ/L (3.5-5.1); SODIUM (NA) 140 MEQ/L (136-145)
[2017-02-22 00:06] LABS: ALT (GPT) 33 U/L (10-53)
[2017-02-22 00:07] LABS: ALKALINE PHOSPHATASE 105 U/L (45-117); TOTAL BILIRUBIN ADULT 0.6 MG/DL (0.2-1.0)
[2017-02-22 01:34] VITALS: BP 121/76; PULSE 58; RESP 18; O2SAT 98
[2017-02-22 01:43] LABS: BLOOD, URINE NEG (NEG); CALCIUM OXALATE CRYSTALS,URINE FEW /hpf; COMMENT (UR) CULT NOT INDICATED; CULTURE IF INDICATED CULT NOT INDICATED; GLUCOSE,URINE 1000 mg/dL (NEG); KETONE, URINE TRACE mg/dL (NEG); MUCUS URINE FEW /lpf (OCC); NITRITE,URINE NEG (NEG); SQUAMOUS EPITHELIAL CELL URINE 1 /hpf (0-5); URINE COLOR YELLOW (YELLW/STRAW)
--- NOTE | 2017-02-22 02:12 | RADRPT ---
EXAM DATE/TIME: 02/22/2017 01:54 [facility] COMPARISON: No previous studies available for comparison. INDICATIONS : Trauma, hit head. RADIATION DOSE: 56.35 CTDIvol (mGy) MEDICAL HISTORY : Diabetes mellitus type 2. SURGICAL HISTORY : section. ENCOUNTER: Initial ACUITY: 1 day PAIN SCALE: 8/10 LOCATION: cranial TECHNIQUE: Multiple contiguous axial images were obtained of the head. Using automated exposure control and adj ustment of the mA and/or kV according to patient size, radiation dose was kept as low as reasonably a chievable to obtain optimal diagnostic quality images. FINDINGS: There is no evidence for intracranial hemorrhage, mass effect, mass lesions, edema, or extra-axial fl uid collections. The visualized bony structures appear intact. The ventricles are normal size for t he patient's age. There are no signs of acute infarction for technique. CONCLUSION: Unremarkable study. Tacho Martin MD on February 22, 2017 at 2:09 Board Certified Radiologist. This report was verified electronically.
--- NOTE | 2017-02-22 02:14 | RADRPT ---
EXAM DATE/TIME: 02/22/2017 01:55 [facility] COMPARISON: No previous studies available for comparison. INDICATIONS : Trauma, hit head. RADIATION DOSE: 33.75 CTDIvol (mGy) MEDICAL HISTORY : Diabetes mellitus type 2. SURGICAL HISTORY : section. ENCOUNTER: Initial ACUITY: 1 day PAIN SCALE: 0/10 LOCATION: neck TECHNIQUE: Volumetric scanning of the cervical spine was performed. Multiplanar reconstructions in the sagittal, coronal and oblique axial planes were performed. Using automated exposure control and adjustment o f the mA and/or kV according to patient size, radiation dose was kept as low as reasonably achievable to obtain optimal diagnostic quality images. FINDINGS: No significant subluxation or soft tissue swelling is seen. No definite fracture is seen for techniqu e. C2-C3: No appreciable compromised to the thecal sac, exiting nerve roots are seen. The neural dev paul are patent bilaterally. No appreciable thecal sac stenosis is seen. C3-C4: No appreciable compromised to the thecal sac, exiting nerve roots are seen. The neural dev paul are patent bilaterally. No appreciable thecal sac stenosis is seen. C4-C5: No appreciable compromised to the thecal sac, exiting nerve roots are seen. The neural dev paul are patent bilaterally. No appreciable thecal sac stenosis is seen. C5-C6: No appreciable compromised to the thecal sac, exiting nerve roots are seen. The neural dev paul are patent bilaterally. No appreciable thecal sac stenosis is seen. C6-C7: No appreciable compromised to the thecal sac, exiting nerve roots are seen. The neural dev paul are patent bilaterally. No appreciable thecal sac stenosis is seen. C7-T1: No appreciable compromised to the thecal sac, exiting nerve roots are seen. The neural dev paul are patent bilaterally. No appreciable thecal sac stenosis is seen CONCLUSION: Unremarkable study. Tacho Martin MD on February 22, 2017 at 2:10 Board Certified Radiologist. This report was verified electronically.
[2017-02-22] MEDS ORDERED: clonazePAM 0.5 MG TAB PO ONE (10:00)
[2017-02-22 10:16] VITALS: BP 124/78; PULSE 96; RESP 18
--- NOTE | 2017-02-22 13:47 | PD ---
History of Present Illness Chief Complaint: Head Injury Time Seen by Provider: 13:30 Travel History International Travel<30 Days: No Contact w/Intl Traveler<30days: No Known affected area: No Legal Status Legal Status: Hair Act Hair Act Signed By: Lisbet Ferris History of Present Illness: This is a 36-year-old female who is very pleasant and wishing this physician would lift her Hair act to allow her to go home. This physician reviewed the Hair act with the patient and apparently there is no gun, according to the patient and the nurse, used in this reported suicide threat. At this time, the patient is calm and cooperative. She has no suicidal or homicidal ideation, plan or intent. She demonstrates no psychotic thinking and her cognition is intact. She is verbally elina for safety. She would like to be seen on an outpatient basis rather than admitted to the hospital. PFSH Past Medical History Hx Anticoagulant Therapy: No Anxiety: Yes Diabetes: Yes (Type 2) Patient Takes Glucophage: No Immunizations Current: No Tetanus Vaccination: > 5 Years Influenza Vaccination: No ?: Unknown Past Surgical History Section: Yes Psychiatric History Psychiatric History Hx Psychiatric Treatment: Patient denies any psych treatment. History of Inpatient Treatment: No Guns or firearms in home: No Social History Hx Alcohol Use: Yes (Rarely) Hx Tobacco Use: Yes (1/2 PPD) Hx Substance Use: No Hx of Substance Use Treatment: No Allergies-Medications (Allergen,Severity, Reaction): Coded Allergies: Latex (Verified Allergy, Severe, 02/03/17) Reported Meds & Prescriptions Reported Meds & Active Scripts Active Januvia (Sitagliptin Phosphate) 100 Mg Tab 100 Mg PO DAILY Reported Klonopin (Clonazepam) 0.5 Mg Tab 0.5 Mg PO HS Review of Systems Except as stated in HPI: all other systems reviewed are Neg Exam Alert: Yes [place]: Person, Place, Date, Situation Mood: Calm Affect: Appropriate, Euthymic Speech: Clear, Logical Eye Contact: Normal Memory Intact: Immediate, Recent, Remote, Comment Insight/Judgement Adequate [facility] Medical Decision Making Medical Record Reviewed: Yes Assessment/Plan Patient's Hair act is being lifted and she is being discharged home. She is cognitively intact, without suicidal or homicidal ideation or psychotic symptoms. She is competent to contract for safety. She is willing to be seen on an outpatient basis and therefore least restrictive alternative applies. Orders Complete Blood Count With Diff (02/21/17 23:02) Comprehensive Metabolic Panel (02/21/17 23:02) Psych Screen (02/21/17 23:02) Restraints Non-Violent JEREMIAH.Q3H (02/21/17 23:02) Drug Screen, Random Urine (02/21/17 23:02) Alcohol (Ethanol) (02/21/17 23:02) Ct Brain W/O Iv Contrast(Rout) (02/21/17 23:02) Ct Cerv Spine W/O Contrast (02/21/17 23:02) Ed Urine Pregnancytest Poc (02/21/17 23:02) Urinalysis - C+S If Indicated (02/22/17 00:13) Diet Diabetic (02/22/17 Breakfast) Diet Regular Basic (02/22/17 Dinner) Clonazepam (Klonopin) (02/22/17 10:00) Sitagliptin (Januvia) (02/22/17 10:00) Diet Regular Basic (02/22/17 Lunch) Results Vital Signs Date Time Temp Pulse Resp B/P Pulse Ox O2 Delivery O2 Flow Rate FiO2 02/22/17 10:16 96 18 124/78 Room Air 02/22/17 01:34 58 18 121/76 98 Room Air 02/21/17 23:07 98.2 112 18 127/86 98 Laboratory Tests Test 02/21/17 23:10 White Blood Count 22.5 Red Blood Count 4.64 Hemoglobin 14.5 Hematocrit 42.2 Mean Corpuscular Volume 90.8 Mean Corpuscular Hemoglobin 31.3 Mean Corpuscular Hemoglobin 34.5 Concent Red Cell Distribution Width 12.8 Platelet Count 243 Mean Platelet Volume 9.1 Neutrophils (%) (Auto) 84.8 Lymphocytes (%) (Auto) 9.4 Monocytes (%) (Auto) 5.0 Eosinophils (%) (Auto) 0.5 Basophils (%) (Auto) 0.3 Neutrophils # (Auto) 19.0 Lymphocytes # (Auto) 2.1 Monocytes # (Auto) 1.1 Eosinophils # (Auto) 0.1 Basophils # (Auto) 0.1 CBC Comment DIFF FINAL Differential Comment Urine Opiates Screen NEG Urine Barbiturates Screen NEG Urine Amphetamines Screen NEG Urine Benzodiazepines Screen NEG Urine Cocaine Screen NEG Urine Cannabinoids Screen NEG Urine Color YELLOW Urine Turbidity HAZY Urine pH 5.0 Urine Specific [place] 1.030 Urine Protein TRACE Urine Glucose (UA) 1000 Urine Ketones TRACE Urine Occult Blood NEG Urine Nitrite NEG Urine Bilirubin NEG Urine Urobilinogen 2.0 Urine Leukocyte Esterase NEG Urine RBC LESS THAN 1 Urine WBC 1 Urine Squamous Epithelial 1 Cells Urine Calcium Oxalate Crystals FEW Urine Mucus FEW Microscopic Urinalysis Comment CULT NOT INDICATED Sodium Level 140 Potassium Level 3.8 Chloride Level 106 Carbon Dioxide Level 23.3 Anion Gap 11 Blood Urea Nitrogen 18 Creatinine 1.31 Estimat Glomerular Filtration 46 Rate Random Glucose 205 Calcium Level 9.1 Total Bilirubin 0.6 Aspartate Amino Transf 17 (AST/SGOT) Alanine Aminotransferase 33 (ALT/SGPT) Alkaline Phosphatase 105 Total Protein 7.6 Albumin 4.1 Ethyl Alcohol Level LESS THAN 3 Diagnosis Primary Impression: Adjustment disorder with mixed disturbance of emotions and conduct Condition: Stable Melchor Waters MD Feb 22, 2017 13:47
[2017-02-22 14:36] VITALS: BP 132/68; TEMP 98
[2017-02-24] MEDS ORDERED: CITA20TA4 PO (15:56)
[2017-03-03] MEDS ORDERED: CITA20TA4 PO (15:30)
== END 2017-02-22 14:41 | disposition home or self-care (01) ==
LOC: NEPC 22:45 → NEPJ 02-22 14:41
DX: S00.03XA Contusion of scalp, initial encounter (principal); T42.4X2A Poisoning by benzodiazepines, intentional self-harm, initial encounter; F43.25 Adjustment disorder with mixed disturbance of emotions and conduct; F41.9 Anxiety disorder, unspecified; F17.210 Nicotine dependence, cigarettes, uncomplicated; W18.30XA Fall on same level, unspecified, initial encounter; Y92.003 Bedroom of unspecified non-institutional (private) residence as the place of occurrence of the external cause
CPT/HCPCS: 70450; 72125; 80053; 80307; 81001; 84703; 85025

== ENCOUNTER 2017-04-01 10:34 | Emergency (ER) | payer MEDICAID ==
[~2017-04-01] VITALS: Ht 170.2 cm; Wt 77.4 kg
[~2017-04-01 10:34] MED LIST changes: +CITA20TA4 PO; +CLON.5 PO; -CLON1TAB PO; -DULO1CAP2 PO; -NAPR500 PO
[2017-04-01 10:38] VITALS: BP 130/81; PULSE 94; RESP 16; TEMP 98.3; O2SAT 100
[2017-04-01 11:28] LABS: AUTOMATED NEUTROPHIL # 8.8 TH/MM3 (1.8-7.7); BASOPHIL % 0.3 % (0.0-2.0); EOSINOPHIL # 0.2 TH/MM3 (0-0.4); EOSINOPHIL % 1.7 % (0.0-4.0); HEMATOCRIT 42.8 % (35.0-46.0); HEMO FLAGS DIFF FINAL; LYMPH % 21.8 % (9.0-44.0); LYMPHOCYTE # 2.7 TH/MM3 (1.0-4.8); MEAN CELL VOLUME 91.4 FL (80.0-100.0); MEAN CORPUSCULAR HGB CONC 33.9 % (32.0-36.0); MONO % 5.5 % (0.0-8.0); NEUT % 70.7 % (16.0-70.0); PLATELET COUNT 266 TH/MM3 (150-450); RED BLOOD COUNT 4.68 MIL/MM3 (4.00-5.30); RED CELL DISTRIBUTION WIDTH 12.2 % (11.6-17.2); WHITE BLOOD COUNT 12.4 TH/MM3 (4.0-11.0)
--- NOTE | 2017-04-01 11:29 | PD ---
HPI Chief Complaint: Numbness/Tingling Time Seen by Provider: 10:45 Travel History International Travel<30 days: No Contact w/Intl Traveler<30days: No Traveled to known affect area: No History of Present Illness HPI PATIENT C/O NUMBNESS TO ENTIRE LUE FROM SHOULDER TO TIP OF ALL FINGERS, DENIES ANY TRAUMA. NONRADIATING, PATIENT STATED SHE SAW HER PCP AND NO WORKUP DONE, PT CONTINUES TO HAVE NUMBNESS AND TINGLING TO ENTIRE LUE. DENIES CP/SOB/COUGH/ URI SX/ PFSH Past Medical History Hx Anticoagulant Therapy: No Anxiety: Yes Diabetes: Yes Patient Takes Glucophage: No Diminished Hearing: No Immunizations Current: No Tetanus Vaccination: Unknown ?: Not Past Surgical History Section: Yes Social History Alcohol Use: Yes (Rarely) Tobacco Use: Yes (/ PPD) Substance Use: No Allergies-Medications (Allergen,Severity, Reaction): Coded Allergies: Latex (Verified Allergy, Severe, 04/01/17) Reported Meds & Prescriptions Reported Meds & Active Scripts Active Flexeril (Cyclobenzaprine HCl) 10 Mg Tab 10 Mg PO TID Codeine-Acetaminophen 30-300 mg Tab 1 Tab PO Q4H PRN Klonopin (Clonazepam) 0.5 Mg Tab 0.5 Mg PO HS Citalopram (Citalopram Hydrobromide) 20 Mg Tab 20 Mg PO DAILY Januvia (Sitagliptin Phosphate) 100 Mg Tab 100 Mg PO DAILY Review of Systems Except as stated in HPI: all other systems reviewed are Neg Neurologic: Positive: Paresthesia, Sensory Disturbance Physical Exam Narrative GENERAL: SKIN: Warm and dry. HEAD: Atraumatic. Normocephalic. EYES: Pupils equal and round. No scleral icterus. No injection or drainage. ENT: No nasal bleeding or discharge. Mucous membranes pink and moist. NECK: Trachea midline. No JVD. CARDIOVASCULAR: Regular rate and rhythm. RESPIRATORY: No accessory muscle use. Clear to auscultation. Breath sounds equal bilaterally. GASTROINTESTINAL: Abdomen soft, non-tender, nondistended. MUSCULOSKELETAL: Extremities without clubbing, cyanosis, or edema. No obvious deformities. NEUROLOGICAL: Awake and alert. No obvious cranial nerve deficits. Motor grossly within normal limits. Five out of 5 muscle strength in the arms and legs. Normal speech. HOWEVER, DECREASED SENSORY TO ENTIRE LUE, NO PARTICULAR DERMATOME PSYCHIATRIC: Appropriate mood and affect; insight and judgment normal. Data Data Last Documented VS Vital Signs Date Time Temp Pulse Resp B/P Pulse Ox O2 Delivery O2 Flow Rate FiO2 04/01/17 15:45 73 14 110/67 98 Room Air 04/01/17 10:38 98.3 Orders Complete Blood Count With Diff (04/01/17 11:07) Comprehensive Metabolic Panel (04/01/17 11:07) Troponin I (04/01/17 11:07) Thyroid Stimulating Hormone (04/01/17 11:07) Ct Brain W/O Iv Contrast(Rout) (04/01/17 ) Ed Urine Pregnancytest Poc (04/01/17 11:07) Electrocardiogram (04/01/17 11:07) Hydromorphone Pf Inj (Dilaudid Pf Inj) (04/01/17 11:30) Ondansetron Inj (Zofran Inj) (04/01/17 11:30) Mri C Spine W/O Contrast (04/01/17 ) Labs Laboratory Tests Test 04/01/17 11:20 White Blood Count 12.4 TH/MM3 Red Blood Count 4.68 MIL/MM3 Hemoglobin 14.5 GM/DL Hematocrit 42.8 % Mean Corpuscular Volume 91.4 FL Mean Corpuscular Hemoglobin 31.0 PG Mean Corpuscular Hemoglobin 33.9 % Concent Red Cell Distribution Width 12.2 % Platelet Count 266 TH/MM3 Mean Platelet Volume 7.8 FL Neutrophils (%) (Auto) 70.7 % Lymphocytes (%) (Auto) 21.8 % Monocytes (%) (Auto) 5.5 % Eosinophils (%) (Auto) 1.7 % Basophils (%) (Auto) 0.3 % Neutrophils # (Auto) 8.8 TH/MM3 Lymphocytes # (Auto) 2.7 TH/MM3 Monocytes # (Auto) 0.7 TH/MM3 Eosinophils # (Auto) 0.2 TH/MM3 Basophils # (Auto) 0.0 TH/MM3 CBC Comment DIFF FINAL Differential Comment Sodium Level 139 MEQ/L Potassium Level 3.9 MEQ/L Chloride Level 105 MEQ/L Carbon Dioxide Level 28.0 MEQ/L Anion Gap 6 MEQ/L Blood Urea Nitrogen 15 MG/DL Creatinine 1.00 MG/DL Estimat Glomerular Filtration 63 ML/MIN Rate Random Glucose 125 MG/DL Calcium Level 9.1 MG/DL Total Bilirubin 0.6 MG/DL Aspartate Amino Transf 18 U/L (AST/SGOT) Alanine Aminotransferase 41 U/L (ALT/SGPT) Alkaline Phosphatase 101 U/L Troponin I LESS THAN 0.02 NG/ML Total Protein 7.6 GM/DL Albumin 4.1 GM/DL Thyroid Stimulating Hormone 1.220 uIU/ML 3rd Gen [facility] Medical Decision Making Medical Screen Exam Complete: Yes Emergency Medical Condition: Yes Medical Record Reviewed: Yes Interpretation(s) NSR 83, NL INTERVALS, NO STEMI PATTERN Differential Diagnosis ATYPICAL STEMI V RADICULOPATHY V PARESTHESIA V NEUROPATHY Narrative Course EKG NEG FOR STEMI, NO ICH ON CT HEAD...NORMAL THYROID SCREENING, MRI PERFORMED NO OVERT CORD COMPRESSION FOUND HOWEVER NOTED INCIDENTAL THYROID NODULE THAT I MADE PATIENT AWARE OF FOR FURTHER FOLLOWUP AFTER COMPLETING EVALUATION WITH NEUROLOGIST. Physician Communication Physician Communication D/W DR WEEKS RADIOLOGIST, [facility] MRI OF CERVICAL SPINE FOR BEST STUDY Diagnosis Primary Impression: PROBABLE LEFT UPPER EXTREMITY RADICULOPATHY Referrals: Solomon Delacruz PhD MD FOR FURTHER EVALUATION Patient Instructions: Cervical Radiculopathy (ED), General Instructions Scripts Cyclobenzaprine (Flexeril)10 Mg Tab10 Mg PO TID #21 TAB Prov:Dorian Arriaza MD 04/01/17 Codeine-Acetaminophen 30-300 mg Tab1 Tab PO Q4H PRN (PAIN) #20 TAB Prov:Dorian Arriaza MD 04/01/17 Disposition: 01 DISCHARGE HOME Condition: Stable Dorian Arriaza MD Apr 01, 2017 11:29
[2017-04-01] MEDS ORDERED: ONDANSETRON HCL 4 MG/2 ML VIAL IVP ONE (11:30)
[2017-04-01] MEDS ORDERED: HYDROmorphone HCL PF 2 MG/ML VIAL IVS ONE (11:30)
[2017-04-01 11:35] VITALS: BP 100/74; PULSE 95; RESP 16; O2SAT 98
[2017-04-01 11:44] LABS: CHLORIDE 105 MEQ/L (98-107); POTASSIUM 3.9 MEQ/L (3.5-5.1); SODIUM (NA) 139 MEQ/L (136-145)
[2017-04-01 11:48] LABS: ANION GAP 6 MEQ/L (5-15); BLOOD UREA NITROGEN 15 MG/DL (7-18)
[2017-04-01 11:51] LABS: ALT (GPT) 41 U/L (10-53); AST (GOT) 18 U/L (15-37); GLOMERULAR FILTRATION RATE 63 ML/MIN (>89)
[2017-04-01 11:53] LABS: TOTAL BILIRUBIN ADULT 0.6 MG/DL (0.2-1.0)
[2017-04-01 11:54] LABS: ALKALINE PHOSPHATASE 101 U/L (45-117)
--- NOTE | 2017-04-01 12:45 | RADRPT ---
EXAM DATE/TIME: 04/01/2017 11:48 [facility] COMPARISON: CT CERVICAL SPINE W/O CONTRAST, February 22, 2017, 1:55. INDICATIONS : Parasthesia for 5 days. RADIATION DOSE: 63.43 CTDIvol (mGy) MEDICAL HISTORY : None SURGICAL HISTORY : None. ENCOUNTER: Initial ACUITY: 4 - 6 days PAIN SCALE: 3/10 LOCATION: Left arm TECHNIQUE: Multiple contiguous axial images were obtained of the head. Using automated exposure control and adj ustment of the mA and/or kV according to patient size, radiation dose was kept as low as reasonably a chievable to obtain optimal diagnostic quality images. DICOM format image data is available electro nically for review and comparison. FINDINGS: CEREBRUM: The ventricles are normal for age. No evidence of midline shift, mass lesion, hemorrhage or acute in farction. No extra-axial fluid collections are seen. POSTERIOR FOSSA: The cerebellum and brainstem are intact. The 4th ventricle is midline. The cerebellopontine angle i s unremarkable. EXTRACRANIAL: The visualized portion of the orbits is intact. SKULL: The calvaria is intact. No evidence of skull fracture. CONCLUSION: 1. Negative examination. Ahsan Fatima MD on April 01, 2017 at 12:28 Board Certified Radiologist. This report was verified electronically.
[2017-04-01 13:20] VITALS: BP 100/65; PULSE 85; RESP 16; O2SAT 98
--- NOTE | 2017-04-01 13:56 | RADRPT ---
EXAM DATE/TIME: 04/01/2017 13:06 [facility] COMPARISON: CT CERVICAL SPINE W/O CONTRAST, February 22, 2017, 1:55. INDICATIONS : Left arm numbness. MEDICAL HISTORY : Diabetes mellitus type 2. SURGICAL HISTORY : section. ENCOUNTER: Initial ACUITY: 2 weeks PAIN SCORE: 0/10 LOCATION: neck TECHNIQUE: Multiplanar, multisequence MRI examination of the cervical spine was performed. FINDINGS: VERTEBRAE: Normal vertebral body height. Homogeneous marrow signal. ALIGNMENT: There is straightening of the cervical spine with a gentle kyphosis. CORD: Normal configuration and signal. POST FOSSA: The cerebellar tonsils are normal in position. A 1.1 cm left lower pole thyroid nodule is noted. C2-C3: The thecal sac has a normal configuration. There is no evidence of disc herniation or spinal canal s tenosis. The neural foramina are patent bilaterally. C3-C4: There is a mild broad-based disc bulge. No flattening of the cord or central canal stenosis. Lateral recesses and neural foramina are patent. C4-C5: There is a mild broad-based disc bulge. No flattening of the cord or central canal stenosis. Lateral recesses and neural foramina are patent. C5-C6: A broad-based disc bulge mildly flattens the ventral portion of the cord. Anterior to posterior dimen brittny of the central canal in the midline is 8 mm. There is narrowing of the lateral recesses bilatera lly. Neural foramina are patent bilaterally. C6-C7: There is a mild broad-based disc bulge. No flattening of the cord or central canal stenosis. Lateral recesses and neural foramina are patent. C7-T1: The thecal sac has a normal configuration. There is no evidence of disc herniation or spinal canal s tenosis. The neural foramina are patent bilaterally. CONCLUSION: 1. 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 Patent neural foramina throughout. 2. 11 mm left thyroid nodule. Jesse Garcia Jr., MD on April 01, 2017 at 13:48 Board Certified Radiologist. This report was verified electronically.
[2017-04-01] MEDS ORDERED: CYCL1TAB29 PO (15:30)
[2017-04-01] MEDS ORDERED: CODE30TA2 PO (15:30)
[2017-04-01 15:45] VITALS: BP 110/67; PULSE 73; RESP 14; O2SAT 98
--- NOTE | 2017-04-01 16:16 | EKG ---
Date Performed: 04/01/2017 Time Performed: 11:24:17 PTAGE: 36 years EKG: Sinus rhythm NORMAL ECG NO PREVIOUS TRACING DOCTOR: Luis Dyson Interpretating Date/Time 04/01/2017 16:15:44
== END 2017-04-01 15:50 | disposition home or self-care (01) ==
LOC: PHED 10:34
DX: R20.2 Paresthesia of skin (principal); R20.0 Anesthesia of skin; E04.1 Nontoxic single thyroid nodule; E11.9 Type 2 diabetes mellitus without complications; F17.200 Nicotine dependence, unspecified, uncomplicated; Z79.84 Long term (current) use of oral hypoglycemic drugs
CPT/HCPCS: 70450; 72141; 80053; 84443; 84484; 84703; 85025; 93005; 96374; 96375; 99285; J1170; J2405

== ENCOUNTER 2017-07-13 08:25 | Emergency (ER) | payer MEDICAID ==
[~2017-07-13] VITALS: Ht 170.2 cm; Wt 80.0 kg
[~2017-07-13 08:25] MED LIST changes: +CODE30TA2 PO; +CYCL1TAB29 PO
[2017-07-13 08:28] VITALS: BP 181/109; PULSE 87; RESP 14; TEMP 98.4; O2SAT 99
[2017-07-13] MEDS ORDERED: PERI0.126 SWISH-SPIT (09:18)
[2017-07-13] MEDS ORDERED: IBUP800T23 PO (09:18)
[2017-07-13] MEDS ORDERED: AMOX500C PO (09:18)
--- NOTE | 2017-07-13 09:18 | PD ---
HPI Chief Complaint: Oral / Dental Pain or Problem Time Seen by Provider: 09:13 Travel History International Travel<30 days: No Contact w/Intl Traveler<30days: No Traveled to known affect area: No History of Present Illness HPI 36-year-old female presents emergency Department with complaint of left lower dental pain that started last night. Denies fever, vomiting. Denies difficulty swallowing, sore throat, unusual drooling. Pain radiates to her left ear. Has not taken any medication or turning treatments to alleviate her symptoms. Describes pain as stabbing, throbbing, aching, is shooting. Pain is 10/10. No known relieving factors. Pain is constant. Allergies to latex. Has no other medical complaints. No other modifying factors or associated signs and symptoms. PFSH Past Medical History Hx Anticoagulant Therapy: No Anxiety: Yes Diabetes: Yes Patient Takes Glucophage: No Diminished Hearing: No Immunizations Current: No Tetanus Vaccination: Unknown ?: Not Past Surgical History Section: Yes Social History Alcohol Use: Yes (Rarely) Tobacco Use: Yes (/ PPD) Substance Use: No Allergies-Medications (Allergen,Severity, Reaction): Coded Allergies: latex (Unverified Allergy, Severe, 07/13/17) Reported Meds & Prescriptions Reported Meds & Active Scripts Active Amoxicillin 500 Mg Cap 500 Mg PO BID 10 Days Peridex Liq (Chlorhexidine Gluconate (Mouth) Liq) 0.12% Soln 15 Ml SWISH-SPIT BID 10 Days Ibuprofen 800 Mg Tab 800 Mg PO Q6HR PRN Klonopin (Clonazepam) 0.5 Mg Tab 0.5 Mg PO HS Citalopram (Citalopram Hydrobromide) 20 Mg Tab 20 Mg PO DAILY Januvia (Sitagliptin Phosphate) 100 Mg Tab 100 Mg PO DAILY Review of Systems Except as stated in HPI: all other systems reviewed are Neg Physical Exam Narrative GENERAL: Well-nourished, well-developed female patient, in no acute distress; afebrile, nontoxic-appearing SKIN: Warm and dry. HEAD: Atraumatic. Normocephalic. No facial edema, erythema, tenderness on palpation. No lymphadenopathy. EYES: Pupils equal and round. No scleral icterus. No injection or drainage. ENT: Mucosa pink and moist. No erythema or exudates. No uvular edema. No uvular , palatal, or tonsillar deviation. Airway patent. EARS: Bilateral pinnae and external canals appear within normal limits. Bilateral tympanic membranes without erythema, dullness or perforation. MOUTH: Mucous membranes moist, no lesions, tongue and gums appear normal. Tooth #17 with tenderness on palpation. Surrounding gingiva is with edema; without erythema, drainage. No obvious abscess noted. NECK: Trachea midline. No lymphadenopathy. CARDIOVASCULAR: Regular rate. RESPIRATORY: No accessory muscle use. GASTROINTESTINAL: Round. MUSCULOSKELETAL: No obvious deformities. No clubbing. No cyanosis. No edema. NEUROLOGICAL: Awake and alert. Oriented 3. No obvious cranial nerve deficits. Motor grossly within normal limits. Normal speech. PSYCHIATRIC: Appropriate mood and affect; insight and judgment normal. Data Data Last Documented VS Vital Signs Date Time Temp Pulse Resp B/P (MAP) Pulse Ox O2 Delivery O2 Flow Rate FiO2 07/13/17 08:28 98.4 87 14 181/109 (133) 99 Orders Orders Ed Discharge Order (07/13/17 09:18) Ibuprofen (Motrin) (07/13/17 09:30) MDM Medical Decision Making Medical Screen Exam Complete: Yes Emergency Medical Condition: Yes Medical Record Reviewed: Yes Differential Diagnosis Dentalgia, dental abscess, impacted dentition, gingivitis Narrative Course 36-year-old female with dentalgia tooth #17. No obvious abscess noted. No facial edema, erythema. Patient is afebrile and nontoxic-appearing. Denies fever, vomiting. Emergency dental information sheet provided for follow-up. Ibuprofen administered in the ER. Amoxicillin, Peridex mouth rinse, ibuprofen prescribed for home. Instructed patient to follow up with primary care provider. Patient verbalizes understanding and agreement with treatment plan. Patient is medically cleared and stable for discharge. Discussed reasons to return to the emergency department. Patient agrees with treatment plan. The patients vital signs are stable and the patient is stable for outpatient follow- up and treatment. Patient discharged home, stable and in no acute distress. Diagnosis Primary Impression: Dentalgia Referrals: Dentist Primary Care Physician Patient Instructions: Dental Abscess (ED), Dental Caries (ED), General Instructions, Toothache (ED) Departure Forms: Tests/Procedures, Work Release Enter return to work date: Jul 13, 2017 Additional Instructions: Complete full course of antibiotics Ibuprofen or Tylenol as directed and as needed to reduce pain and inflammation Use Peridex as directed for oral hygiene Warm or cool compresses to the affected area Follow-up with dentist Follow-up with primary care provider Return to emergency department immediately with worsening of symptoms Med/Other Pt SpecificInfo: Prescription(s) given Scripts Amoxicillin (Amoxicillin) 500 Mg Cap 500 MG PO BID for Infection for 10 Days, #20 CAP 0 Refills Prov: Jodi Brothers 07/13/17 Chlorhexidine Gluconate (Mouth) Liq (Peridex Liq) 0.12% Soln 15 ML SWISH-SPIT BID for 10 Days, #300 ML 0 Refills Prov: Jodi Brothers 07/13/17 Ibuprofen (Ibuprofen) 800 Mg Tab 800 MG PO Q6HR Y for PAIN, #30 TAB 0 Refills Prov: Jodi Brothers 07/13/17 Disposition: 01 DISCHARGE HOME Condition: Stable Jodi Brothers Jul 13, 2017 09:18
[2017-07-13 09:24] VITALS: BP 148/68
[2017-07-13] MEDS ORDERED: IBUPROFEN 800 MG TAB PO ONE (09:30)
[2017-07-21] MEDS ORDERED: CLON.5 PO (13:13)
== END 2017-07-13 09:32 | disposition home or self-care (01) ==
LOC: NEPD 08:25
DX: K08.89 Other specified disorders of teeth and supporting structures (principal); E11.9 Type 2 diabetes mellitus without complications; Z72.0 Tobacco use
CPT/HCPCS: 99284

== ENCOUNTER 2017-08-10 12:13 | Emergency (ER) | payer OTHER, MEDICAID ==
[~2017-08-10] VITALS: Ht 170.2 cm; Wt 77.0 kg
[~2017-08-10 12:13] MED LIST changes: -CODE30TA2 PO; +CYCL10TA PO; -CYCL1TAB29 PO; +IBUP1TAB7 PO; +PERI0.126 SWISH-SPIT
[2017-08-10 12:29] VITALS: BP 122/79; PULSE 101; RESP 19; TEMP 98.6; O2SAT 97
[2017-08-10] MEDS ORDERED: SODIUM CHLORIDE 0.9% FLUSH 10 ML FLUSH IVF PRN (12:45)
[2017-08-10] MEDS ORDERED: MORPHINE SULFATE 4 MG/ML INJ IV PUSH ONE (12:45)
[2017-08-10] MEDS ORDERED: ONDANSETRON HCL 4 MG/2 ML VIAL IVP ONE (12:45)
[2017-08-10 12:56] VITALS: BP 122/79; PULSE 101; RESP 19; TEMP 98.6; O2SAT 97
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
[2017-08-10] MEDS ORDERED: HYDR-3516 PO (14:35)
[2017-08-10] MEDS ORDERED: IBUP1TAB7 PO (14:35)
[2017-08-10] MEDS ORDERED: CYCL10TA PO (14:35)
[2017-08-10] MEDS ORDERED: KETOROLAC TROMETHAMINE 30 MG/ML (IVP) VIAL IV PUSH ONE (14:45)
[2017-08-10 15:43] VITALS: BP 117/76
== END 2017-08-10 15:44 | disposition home or self-care (01) ==
LOC: NEPD 12:13
DX: S16.1XXA Strain of muscle, fascia and tendon at neck level, initial encounter (principal); M62.830 Muscle spasm of back; M51.36 Other intervertebral disc degeneration, lumbar region; F41.9 Anxiety disorder, unspecified; E11.9 Type 2 diabetes mellitus without complications; F17.200 Nicotine dependence, unspecified, uncomplicated; V43.52XA Car driver injured in collision with other type car in traffic accident, initial encounter
CPT/HCPCS: 71010; 72100; 72125; 96374; 96375; 99285; J1885; J2270; J2405

== ENCOUNTER 2017-11-12 20:29 | Emergency (ER) | payer OTHER, MEDICAID ==
[~2017-11-12] VITALS: Ht 170.2 cm; Wt 78.0 kg
[~2017-11-12 20:29] MED LIST changes: +METR1TAB76 PO
[2017-11-12] MEDS ORDERED: IOHEXOL 350 MG/ML 10 ML VIAL (for RAD DIAG) IVCONTRAST ONE (20:30)
[2017-11-12 20:41] VITALS: BP 136/78; PULSE 80; RESP 16; TEMP 98.4; O2SAT 98
[2017-11-12] MEDS ORDERED: SODIUM CHLORIDE 0.9% FLUSH 10 ML FLUSH IVF PRN (20:45)
--- NOTE | 2017-11-12 20:45 | PD ---
HPI Chief Complaint: fall back pain Time Seen by Provider: 20:41 Travel History International Travel<30 days: No Contact w/Intl Traveler<30days: No Traveled to known affect area: No History of Present Illness HPI Patient is a 37-year-old female who was coming down from a ladder and on the left third and fourth rung she fell backwards landing on her back and her head and her neck. She arrives by paramedics normal vital signs awake alert oriented 3 but complaining of head pain cervical pain thoracic spine pain and lumbar spine pain she also says it is difficult to lift her right leg because of the pain. She is logrolled off the backboard C-spine precaution and continues to have the same pains even off of the backboard denies the ability to be she has an IUD and no other complaints at this time no obvious lacerations she is alert oriented 3 she happened just prior to arrival and she did not take any medication to alleviate the symptoms. And she has not seen another doctor for this complaint PFSH Past Medical History Hx Anticoagulant Therapy: No Anxiety: Yes Diabetes: Yes Diminished Hearing: No Immunizations Current: No Past Surgical History Section: Yes Social History Alcohol Use: Yes (Rarely) Tobacco Use: Yes (09/24 PPD) Substance Use: No Allergies-Medications (Allergen,Severity, Reaction): Coded Allergies: latex (Unverified Allergy, Severe, 11/12/17) Reported Meds & Prescriptions Reported Meds & Active Scripts Active Valium (Diazepam) 5 Mg Tab 5 Mg PO TID PRN Ibuprofen 600 Mg Tab 600 Mg PO Q6H PRN Klonopin (Clonazepam) 0.5 Mg Tab 0.5 Mg PO BID Januvia (Sitagliptin Phosphate) 100 Mg Tab 100 Mg PO DAILY Reported Dixon (Hydrocodone-Acetaminophen) 10-325 Mg Tab 1 Tab PO DAILY PRN Review of Systems Except as stated in HPI: all other systems reviewed are Neg Musculoskeletal: Positive: Myalgias, Arthralgias (Back pain thoracic and lumbar from fall) Physical Exam Narrative GENERAL: C-collar backboard SKIN: Warm and dry. HEAD: Atraumatic. Normocephalic. EYES: Pupils equal and round. No scleral icterus. No injection or drainage. Pupils equal reactive, full range of motion of extraocular motion ENT: No nasal bleeding or discharge. Mucous membranes pink and moist. NECK: Trachea midline. No JVD. CARDIOVASCULAR: Regular rate and rhythm. RESPIRATORY: No accessory muscle use. Clear to auscultation. Breath sounds equal bilaterally. GASTROINTESTINAL: Abdomen soft, non-tender, nondistended. Hepatic and splenic margins not palpable. filter press tender spinous process thoracic all the way through the lumbar no step-off felt no hematoma seen MUSCULOSKELETAL: Extremities without clubbing, cyanosis, or edema. No obvious deformities. NEUROLOGICAL: Awake and alert. No obvious cranial nerve deficits. Motor grossly within normal limits. Five out of 5 muscle strength in the arms and legs. Normal speech. PSYCHIATRIC: Appropriate mood and affect; insight and judgment normal. Data Data Last Documented VS Vital Signs Date Time Temp Pulse Resp B/P (MAP) Pulse Ox O2 Delivery O2 Flow Rate FiO2 11/13/17 00:08 98.1 73 18 122/76 (91) 98 Orders Orders Basic Metabolic Panel (Bmp) (11/12/17 20:45) Complete Blood Count With Diff (11/12/17 20:45) Alcohol (Ethanol) (11/12/17 20:45) Urinalysis - C+S If Indicated (11/12/17 20:45) Ct Brain W/O Iv Contrast(Rout) (11/12/17 20:45) Ct Cerv Spine W/O Contrast (11/12/17 20:45) Ct Abd/Pel W Iv Contrast(Rout) (11/12/17 20:45) Ct Thorax/ Chest W Iv Contrast (11/12/17 20:45) Ct Thor Spine W Iv Contrast (11/12/17 20:45) Ct Lumb Spine W Iv Contrast (11/12/17 20:45) Iv Access Insert/Monitor (11/12/17 20:45) Ecg Monitoring (11/12/17 20:45) Oximetry (11/12/17 20:45) Oxygen Administration (11/12/17 20:45) Sodium Chloride 0.9% Flush (Ns Flush) (11/12/17 20:45) Ed Urine Pregnancytest Poc (11/12/17 20:45) Beta Hcg (Quant/Titer) (11/12/17 20:50) Morphine Inj (Morphine Inj) (11/12/17 21:45) Ondansetron Inj (Zofran Inj) (11/12/17 21:45) Iohexol 350 Inj (Omnipaque 350 Inj) (11/12/17 20:30) Ketorolac Inj (Toradol Inj) (11/12/17 23:00) Sodium Chlor 0.9% 1000 Ml Inj (Ns 1000 M (11/12/17 23:15) Ed Discharge Order (11/12/17 23:57) Urine Culture (11/12/17 23:49) Labs Laboratory Tests Test 11/12/17 20:50 11/12/17 23:49 White Blood Count 13.1 TH/MM3 Red Blood Count 4.49 MIL/MM3 Hemoglobin 14.5 GM/DL Hematocrit 42.6 % Mean Corpuscular Volume 94.8 FL Mean Corpuscular Hemoglobin 32.3 PG Mean Corpuscular Hemoglobin Concent 34.0 % Red Cell Distribution Width 12.6 % Platelet Count 243 TH/MM3 Mean Platelet Volume 8.3 FL Neutrophils (%) (Auto) 69.5 % Lymphocytes (%) (Auto) 21.8 % Monocytes (%) (Auto) 7.2 % Eosinophils (%) (Auto) 0.9 % Basophils (%) (Auto) 0.6 % Neutrophils # (Auto) 9.1 TH/MM3 Lymphocytes # (Auto) 2.9 TH/MM3 Monocytes # (Auto) 0.9 TH/MM3 Eosinophils # (Auto) 0.1 TH/MM3 Basophils # (Auto) 0.1 TH/MM3 CBC Comment DIFF FINAL Differential Comment Blood Urea Nitrogen 18 MG/DL Creatinine 1.06 MG/DL Random Glucose 253 MG/DL Calcium Level 9.7 MG/DL Sodium Level 135 MEQ/L Potassium Level 3.8 MEQ/L Chloride Level 101 MEQ/L Carbon Dioxide Level 27.2 MEQ/L Anion Gap 7 MEQ/L Estimat Glomerular Filtration Rate 58 ML/MIN Human Chorionic Gonadotropin, Quant LESS THAN 1 MIU/ML Ethyl Alcohol Level LESS THAN 3 MG/DL Urine Color YELLOW Urine Turbidity CLEAR Urine pH 5.5 Urine Specific [place] GREATER THAN 1.050 Urine Protein 30 mg/dL Urine Glucose (UA) 1000 mg/dL Urine Ketones NEG mg/dL Urine Occult Blood NEG Urine Nitrite POS Urine Bilirubin NEG Urine Urobilinogen LESS THAN 2.0 MG/DL Urine Leukocyte Esterase NEG Urine RBC 1 /hpf Urine WBC LESS THAN 1 /hpf Urine Squamous Epithelial Cells 2 /hpf Urine Bacteria FEW /hpf Urine Mucus FEW /lpf Microscopic Urinalysis Comment CATH-CULTURE IND MDM Medical Decision Making Medical Screen Exam Complete: Yes Emergency Medical Condition: Yes Differential Diagnosis contusions vs fracture vs muscle spasm vs strain head injury contusiion vs intracramial bleed skull frac other Narrative Course CT head cervical thoracic and lumbral and abdo all negative toradol and NS and dsicharge Diagnosis Primary Impression: Fall Qualified Codes: W19.XXXA - Unspecified fall, initial encounter Additional Impression: Back injury Qualified Codes: S39.92XA - Unspecified injury of lower back, initial encounter Scripts Diazepam (Valium) 5 Mg Tab 5 MG PO TID Y for MUSCLE SPASM, #15 TAB 0 Refills Prov: Ronnie Bethea MD 11/12/17 Ibuprofen (Ibuprofen) 600 Mg Tab 600 MG PO Q6H Y for Pain/Inflammation, #40 TAB 0 Refills Prov: Ronnie Bethea MD 11/12/17 Disposition: 01 DISCHARGE HOME Condition: Good Ronnie Bethea MD Nov 12, 2017 20:45
[2017-11-12] MEDS ORDERED: HYDR-3366 PO (20:47)
[2017-11-12 21:11] LABS: AUTOMATED NEUTROPHIL # 9.1 TH/MM3 (1.8-7.7); BASOPHIL # 0.1 TH/MM3 (0-0.2); BASOPHIL % 0.6 % (0.0-2.0); EOSINOPHIL # 0.1 TH/MM3 (0-0.4); EOSINOPHIL % 0.9 % (0.0-4.0); HEMATOCRIT 42.6 % (35.0-46.0); HEMOGLOBIN 14.5 GM/DL (11.6-15.3); LYMPH % 21.8 % (9.0-44.0); LYMPHOCYTE # 2.9 TH/MM3 (1.0-4.8); MEAN CELL VOLUME 94.8 FL (80.0-100.0); MEAN CORPUSCULAR HEMOGLOBIN 32.3 PG (27.0-34.0); MEAN PLATELET VOLUME 8.3 FL (7.0-11.0); MONO % 7.2 % (0.0-8.0); MONOCYTE # 0.9 TH/MM3 (0-0.9); NEUT % 69.5 % (16.0-70.0); PLATELET COUNT 243 TH/MM3 (150-450); RED BLOOD COUNT 4.49 MIL/MM3 (4.00-5.30); RED CELL DISTRIBUTION WIDTH 12.6 % (11.6-17.2); WHITE BLOOD COUNT 13.1 TH/MM3 (4.0-11.0)
[2017-11-12 21:26] LABS: BICARBONATE 27.2 MEQ/L (21.0-32.0); BLOOD UREA NITROGEN 18 MG/DL (7-18); CALCIUM 9.7 MG/DL (8.5-10.1); CHLORIDE 101 MEQ/L (98-107); CREATININE 1.06 MG/DL (0.50-1.00); GLOMERULAR FILTRATION RATE 58 ML/MIN (>89); GLUCOSE,RANDOM 253 MG/DL (74-106); SODIUM (NA) 135 MEQ/L (136-145)
[2017-11-12] MEDS ORDERED: ONDANSETRON HCL 4 MG/2 ML VIAL IV PUSH ONE (21:45)
[2017-11-12] MEDS ORDERED: MORPHINE SULFATE 2 MG/ML INJ IV PUSH ONE (21:45)
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
--- NOTE | 2017-11-12 22:08 | RADRPT ---
EXAM DATE/TIME: 11/12/2017 21:44 [facility] COMPARISON: No previous studies available for comparison. INDICATIONS : Diffuse abdomen pain due to fall. IV CONTRAST: 97 cc Omnipaque 350 (iohexol) IV ORAL CONTRAST: No oral contrast ingested. RADIATION DOSE: 7.11 CTDIvol (mGy) ; Combined studies - Thorax/Abdomen/Pelvis MEDICAL HISTORY : Diabetes mellitus type 2. SURGICAL HISTORY : section. ENCOUNTER: Initial ACUITY: 1 day PAIN SCALE: 9/10 LOCATION: Bilateral lower quadrant TECHNIQUE: Volumetric scanning of the abdomen and pelvis was performed. Using automated exposure control and ad justment of the mA and/or kV according to patient size, radiation dose was kept as low as reasonably achievable to obtain optimal diagnostic quality images. DICOM format image data is available electro nically for review and comparison. FINDINGS: LOWER LUNGS: The visualized lower lungs are clear. LIVER: Homogeneous density without lesion. There is no dilation of the biliary tree. No calcified gallston es. SPLEEN: Normal size without lesion. PANCREAS: Within normal limits. KIDNEYS: Normal in size and shape. There is no mass, stone or hydronephrosis. ADRENAL GLANDS: Within normal limits. VASCULAR: There is no aortic aneurysm. BOWEL/MESENTERY: The stomach, small bowel, and colon demonstrate no acute abnormality. There is no free intraperitone al air or fluid. ABDOMINAL WALL: Within normal limits. RETROPERITONEUM: There is no lymphadenopathy. BLADDER: No wall thickening or mass. REPRODUCTIVE: IUD in place. INGUINAL: There is no lymphadenopathy or hernia. MUSCULOSKELETAL: Osseous structures are intact without acute bony fracture. CONCLUSION: 1. No CT evidence for acute traumatic injury in the abdomen or pelvis. Charlie Rodriguez MD on November 12, 2017 at 22:04 Board Certified Radiologist. This report was verified electronically.
--- NOTE | 2017-11-12 22:09 | RADRPT ---
EXAM DATE/TIME: 11/12/2017 21:44 [facility] COMPARISON: No previous studies available for comparison. INDICATIONS : Chest pain due to fall IV CONTRAST: 97 cc Omnipaque 350 (iohexol) IV RADIATION DOSE: 7.11 CTDIvol (mGy) ; Combined studies - Thorax/Abdomen/Pelvis MEDICAL HISTORY : Diabetes mellitus type 2. SURGICAL HISTORY : section. ENCOUNTER: Initial ACUITY: 1 day PAIN SCALE: 9/10 LOCATION: Bilateral chest TECHNIQUE: Volumetric scanning of the chest was performed. Using automated exposure control and adjustment of t he mA and/or kV according to patient size, radiation dose was kept as low as reasonably achievable to obtain optimal diagnostic quality images. DICOM format image data is available electronically for review and comparison. Follow-up recommendations for detected pulmonary nodules are based at a minimum on nodule size and pa tient risk factors according to Fleischner Society Guidelines. FINDINGS: LUNGS: There is no consolidation or pneumothorax. No concerning pulmonary nodule is visualized. PLEURA: There is no pleural thickening or pleural effusion. MEDIASTINUM: The heart and great vessels demonstrate no acute abnormality. There is no mediastinal or hilar lymph adenopathy. AXILLAE: Within normal limits. No lymphadenopathy. SKELETAL: Osseous structures appear intact without acute bony fracture. MISCELLANEOUS: The visualized upper abdominal organs demonstrate no acute abnormality. CONCLUSION: 1. No CT evidence for acute traumatic injury in the chest. Charlie Rodriguez MD on November 12, 2017 at 22:06 Board Certified Radiologist. This report was verified electronically.
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
--- NOTE | 2017-11-12 22:18 | RADRPT ---
EXAM DATE/TIME: 11/12/2017 21:44 [facility] COMPARISON: No previous studies available for comparison. INDICATIONS : Mid back pain due to fall. IV CONTRAST: 97 cc Omnipaque 350 (iohexol) IV RADIATION DOSE: ; Reconstructed from previous dataset, no dose MEDICAL HISTORY : Diabetes mellitus type 2. SURGICAL HISTORY : section. ENCOUNTER: Initial ACUITY: 1 day PAIN SCALE: 9/10 LOCATION: Bilateral mid back. TECHNIQUE: Volumetric scanning of the thoracic spine was performed. Multiplanar reconstructions in the sagittal , coronal and oblique axial planes were performed. Using automated exposure control and adjustment o f the mA and/or kV according to patient size, radiation dose was kept as low as reasonably achievable to obtain optimal diagnostic quality images. DICOM format image data is available electronically fo r review and comparison. FINDINGS: The vertebral bodies of the thoracic spine are in normal alignment without evidence of subluxation. Vertebral body height is maintained. No fractures are seen. T1-T2: Normal. T2-T3: The thecal sac has a normal diameter. No evidence of disc bulge or protrusion. T3-T4: The thecal sac has a normal diameter. No evidence of disc bulge or protrusion. T4-T5: The thecal sac has a normal diameter. No evidence of disc bulge or protrusion. T5-T6: The thecal sac has a normal diameter. No evidence of disc bulge or protrusion. T6-T7: The thecal sac has a normal diameter. No evidence of disc bulge or protrusion. T7-T8: The thecal sac has a normal diameter. No evidence of disc bulge or protrusion. T8-T9: The thecal sac has a normal diameter. No evidence of disc bulge or protrusion. T9-T10: The thecal sac has a normal diameter. No evidence of disc bulge or protrusion. T10-T11: Diffuse disc bulge with increased density in the posterior disc space. Mild facet arthropathy. Mild a ssociated central canal narrowing. No significant neural foraminal stenosis. T11-T12: The thecal sac has a normal diameter. No evidence of disc bulge or protrusion. T12-L1: The thecal sac has a normal diameter. No evidence of disc bulge or protrusion. CONCLUSION: 1. No acute fracture or subluxation. 2. Mild degenerative change at T10-11. Charlie Rodriguez MD on November 12, 2017 at 22:14 Board Certified Radiologist. This report was verified electronically.
--- NOTE | 2017-11-12 22:19 | RADRPT ---
EXAM DATE/TIME: 11/12/2017 21:44 [facility] COMPARISON: No previous studies available for comparison. INDICATIONS : Low back pain due to fall. IV CONTRAST: 97 cc Omnipaque 350 (iohexol) IV RADIATION DOSE: ; Reconstructed from previous dataset, no dose MEDICAL HISTORY : Diabetes mellitus type 2. SURGICAL HISTORY : section. ENCOUNTER: Initial ACUITY: 1 day PAIN SCALE: 9/10 LOCATION: Bilateral low back region. TECHNIQUE: Volumetric scanning of the lumbar spine was performed. Multiplanar reconstructions in the sagittal, coronal and oblique axial planes were performed. Using automated exposure control and adjustment of the mA and/or kV according to patient size, radiation dose was kept as low as reasonably achievable t o obtain optimal diagnostic quality images. DICOM format image data is available electronically for review and comparison. FINDINGS: CONUS MEDULLARIS: Normal. PARASPINAL SOFT TISSUES: Normal. LUMBAR CORD: Normal. DURAL SAC: Normal. L1-L2: The disc, uncovertebral joints, central canal, foramina, and facets are normal. L2-L3: The disc, uncovertebral joints, central canal, foramina, and facets are normal. L3-L4: Minimal diffuse disc bulge without central canal or neural foraminal stenosis. L5 CONCLUSION: 1. No acute fracture or subluxation. 2. Degenerative spondylosis of the lower lumbar spine most prominently at L4-S1. No significant centr al canal or neural foraminal narrowing. Charlie Rodriguez MD on November 12, 2017 at 22:16 Board Certified Radiologist. This report was verified electronically.
[2017-11-12] MEDS ORDERED: KETOROLAC TROMETHAMINE 30 MG/ML (IVP) VIAL IV PUSH ONE (23:00)
[2017-11-12] MEDS ORDERED: SODIUM CHLOR 0.9% 1000 ML INJ 1,000 ML IV ONE (23:15)
[2017-11-12] MEDS ORDERED: IBUP-232 PO (23:55)
[2017-11-12] MEDS ORDERED: DIAZ5 PO (23:55)
[2017-11-13 00:04] LABS: BACTERIA, URINE FEW /hpf; BILIRUBIN, URINE NEG (NEG); BLOOD, URINE NEG (NEG); GLUCOSE,URINE 1000 mg/dL (NEG); KETONE, URINE NEG (NEG); MUCUS URINE FEW /lpf (OCC); NITRITE,URINE POS (NEG); PH, URINE 5.5 (5.0-8.5); SQUAMOUS EPITHELIAL CELL URINE 2 /hpf (0-5); URINE COLOR YELLOW (YELLW/STRAW); URINE LEUKOCYTE ESTERASE NEG (NEG)
[2017-11-13 00:08] VITALS: BP 122/76; TEMP 98.1
== END 2017-11-13 00:56 | disposition home or self-care (01) ==
LOC: NEPC 20:29
DX: S39.92XA Unspecified injury of lower back, initial encounter (principal); M54.6 Pain in thoracic spine; M54.2 Cervicalgia; R51 Headache; F17.200 Nicotine dependence, unspecified, uncomplicated; E11.9 Type 2 diabetes mellitus without complications; F41.9 Anxiety disorder, unspecified; R82.71 Bacteriuria; W11.XXXA Fall on and from ladder, initial encounter; Z79.84 Long term (current) use of oral hypoglycemic drugs
CPT/HCPCS: 70450; 71260; 72125; 72129; 72132; 74177; 80048; 80307; 81001; 84702; 84703; 85025; 87077; 87086; 87186; 96361; 96374; 96375; 99284; J1885; J2270; J2405; J7030; Q9967

== ENCOUNTER 2018-02-15 18:28 | Emergency (ER) | payer MEDICAID ==
[~2018-02-15] VITALS: Ht 170.2 cm; Wt 80.0 kg
[~2018-02-15 18:28] MED LIST changes: -CITA20TA4 PO; -CYCL10TA PO; +DIAZ5 PO; +HYDR-3366 PO; +IBUP-232 PO; -IBUP1TAB7 PO; -METR1TAB76 PO; -PERI0.126 SWISH-SPIT
[2018-02-15 18:30] VITALS: BP_SYST 115; BP_SYST 161; BP_DIAS 69; BP_DIAS 96; PULSE 105; RESP 20; TEMP 98.9; O2SAT 99
[2018-02-15] MEDS ORDERED: PROZ20CA11 PO (19:12)
[2018-02-15] MEDS ORDERED: SODIUM CHLORIDE 0.9% FLUSH 10 ML FLUSH IVF PRN (19:15)
[2018-02-15] MEDS ORDERED: SODIUM CHLOR 0.9% 1000 ML INJ 1,000 ML IV ONE (19:15)
--- NOTE | 2018-02-15 19:19 | PD ---
HPI Chief Complaint: Cold / Flu Symptoms Time Seen by Provider: 19:04 Travel History International Travel<30 days: No Contact w/Intl Traveler<30days: No Traveled to known affect area: No History of Present Illness HPI Patient is a 37-year-old female presenting to [facility] department for evaluation of sore throat, body aches, fevers, cough, chest congestion and nasal congestion. Patient states her symptoms started 3 days ago. She reports that she feels short of breath. Cough is nonproductive. She states that her fevers have been as high as 103. She took TheraFlu 2 hours prior to arrival. Patient denies any nausea, vomiting, abdominal pain, chest pain. Symptom onset was gradual, symptoms are moderate and constant in nature. She reports a history of type 2 diabetes, she is a current smoker. [facility] Past Medical History Hx Anticoagulant Therapy: No Anxiety: Yes Depression: Yes Diabetes: Yes Immunizations Current: Yes Tetanus Vaccination: > 5 Years Influenza Vaccination: Yes ?: Not LMP: 2012 : 1 Para: 1 Past Surgical History Surgical History: No Previous Surgery Section: Yes Social History Alcohol Use: Yes (Rarely) Tobacco Use: Yes (09/24 PPD) Substance Use: No Allergies-Medications (Allergen,Severity, Reaction): Coded Allergies: latex (Unverified Allergy, Severe, 02/15/18) Reported Meds & Prescriptions Reported Meds & Active Scripts Active Klonopin (Clonazepam) 0.5 Mg Tab 0.5 Mg PO BID Januvia (Sitagliptin Phosphate) 100 Mg Tab 100 Mg PO DAILY Reported Prozac (Fluoxetine HCl) 20 Mg Cap 20 Mg PO DAILY Review of Systems Except as stated in HPI: all other systems reviewed are Neg General / Constitutional: Positive: Fever, Chills HENT: Positive: Headaches, Congestion Cardiovascular: No: Chest Pain or Discomfort Respiratory: Positive: Cough, Shortness of Breath Gastrointestinal: No: Nausea, Vomiting, Abdominal Pain Musculoskeletal: Positive: Myalgias Neurologic: No: Weakness, Dizziness, Syncope Physical Exam Narrative GENERAL: Well-developed, well-nourished, alert female. Presenting in no acute distress. SKIN: Warm and dry. HEAD: Atraumatic. Normocephalic. EYES: Pupils equal and round. No scleral icterus. No injection or drainage. ENT: No nasal bleeding or discharge. Mucous membranes pink and moist. Posterior pharynx is erythematous with cobblestone appearance. No tonsillar hypertrophy noted. No exudates noted. NECK: Trachea midline. No JVD. CARDIOVASCULAR: Regular rate and rhythm. RESPIRATORY: No accessory muscle use. Coarse breath sounds in bases, more so on the right than the left. GASTROINTESTINAL: Abdomen soft, non-tender, nondistended. Hepatic and splenic margins not palpable. MUSCULOSKELETAL: Extremities without clubbing, cyanosis, or edema. No obvious deformities. NEUROLOGICAL: Awake and alert. No obvious cranial nerve deficits. Motor grossly within normal limits. Five out of 5 muscle strength in the arms and legs. Normal speech. PSYCHIATRIC: Appropriate mood and affect; insight and judgment normal. Data Data Last Documented VS Vital Signs Date Time Temp Pulse Resp B/P (MAP) Pulse Ox O2 Delivery O2 Flow Rate FiO2 02/15/18 18:30 98.9 105 20 115/69 (84) 99 Orders Orders Complete Blood Count With Diff (02/15/18 19:12) Comprehensive Metabolic Panel (02/15/18 19:12) Group A Rapid Strep Screen (02/15/18 19:12) Influenzae A/B Antigen (02/15/18 19:12) Ecg Monitoring (02/15/18 19:12) Iv Access Insert/Monitor (02/15/18 19:12) Oximetry (02/15/18 19:12) Sodium Chloride 0.9% Flush (Ns Flush) (02/15/18 19:15) Sodium Chlor 0.9% 1000 Ml Inj (Ns 1000 M (02/15/18 19:15) Chest, Pa & Lat (02/15/18 ) Strep Culture (Group A) (02/15/18 19:22) Labs Laboratory Tests Test 02/15/18 19:38 White Blood Count 14.5 TH/MM3 Red Blood Count 4.59 MIL/MM3 Hemoglobin 14.5 GM/DL Hematocrit 42.7 % Mean Corpuscular Volume 93.0 FL Mean Corpuscular Hemoglobin 31.7 PG Mean Corpuscular Hemoglobin Concent 34.1 % Red Cell Distribution Width 12.7 % Platelet Count 253 TH/MM3 Mean Platelet Volume 9.0 FL Neutrophils (%) (Auto) 71.7 % Lymphocytes (%) (Auto) 18.8 % Monocytes (%) (Auto) 6.6 % Eosinophils (%) (Auto) 2.2 % Basophils (%) (Auto) 0.7 % Neutrophils # (Auto) 10.4 TH/MM3 Lymphocytes # (Auto) 2.7 TH/MM3 Monocytes # (Auto) 1.0 TH/MM3 Eosinophils # (Auto) 0.3 TH/MM3 Basophils # (Auto) 0.1 TH/MM3 CBC Comment DIFF FINAL Differential Comment Blood Urea Nitrogen 9 MG/DL Creatinine 0.97 MG/DL Random Glucose 214 MG/DL Total Protein 7.6 GM/DL Albumin 3.9 GM/DL Calcium Level 9.4 MG/DL Alkaline Phosphatase 135 U/L Aspartate Amino Transf (AST/SGOT) 38 U/L Alanine Aminotransferase (ALT/SGPT) 64 U/L Total Bilirubin 0.4 MG/DL Sodium Level 139 MEQ/L Potassium Level 4.0 MEQ/L Chloride Level 102 MEQ/L Carbon Dioxide Level 27.5 MEQ/L Anion Gap 10 MEQ/L Estimat Glomerular Filtration Rate 65 ML/MIN MDM Medical Decision Making Medical Screen Exam Complete: Yes Emergency Medical Condition: Yes Interpretation(s) Last Impressions Chest X-Ray 02/15/18 0000 Signed Impressions: CONCLUSION: No active disease. Laboratory Tests Test 02/15/18 19:38 White Blood Count 14.5 TH/MM3 Red Blood Count 4.59 MIL/MM3 Hemoglobin 14.5 GM/DL Hematocrit 42.7 % Mean Corpuscular Volume 93.0 FL Mean Corpuscular Hemoglobin 31.7 PG Mean Corpuscular Hemoglobin Concent 34.1 % Red Cell Distribution Width 12.7 % Platelet Count 253 TH/MM3 Mean Platelet Volume 9.0 FL Neutrophils (%) (Auto) 71.7 % Lymphocytes (%) (Auto) 18.8 % Monocytes (%) (Auto) 6.6 % Eosinophils (%) (Auto) 2.2 % Basophils (%) (Auto) 0.7 % Neutrophils # (Auto) 10.4 TH/MM3 Lymphocytes # (Auto) 2.7 TH/MM3 Monocytes # (Auto) 1.0 TH/MM3 Eosinophils # (Auto) 0.3 TH/MM3 Basophils # (Auto) 0.1 TH/MM3 CBC Comment DIFF FINAL Differential Comment Blood Urea Nitrogen 9 MG/DL Creatinine 0.97 MG/DL Random Glucose 214 MG/DL Total Protein 7.6 GM/DL Albumin 3.9 GM/DL Calcium Level 9.4 MG/DL Alkaline Phosphatase 135 U/L Aspartate Amino Transf (AST/SGOT) 38 U/L Alanine Aminotransferase (ALT/SGPT) 64 U/L Total Bilirubin 0.4 MG/DL Sodium Level 139 MEQ/L Potassium Level 4.0 MEQ/L Chloride Level 102 MEQ/L Carbon Dioxide Level 27.5 MEQ/L Anion Gap 10 MEQ/L Estimat Glomerular Filtration Rate 65 ML/MIN Vital Signs Date Time Temp Pulse Resp B/P (MAP) Pulse Ox O2 Delivery O2 Flow Rate FiO2 02/15/18 18:30 98.9 105 20 115/69 (84) 99 Differential Diagnosis Influenza versus strep pharyngitis versus pneumonia versus bronchitis versus URI versus other Narrative Course Patient is a 37-year-old female presenting for evaluation of cold and flulike symptoms for the last 4 days. Patient is mildly tachycardic on arrival, she is afebrile currently but took TheraFlu 2 hours prior to arrival. Labs and imaging ordered and pending. CBC with white blood count of 14.5, chemistry is unremarkable, influenza and strep are negative. Chest x-ray shows no acute disease. Symptoms are likely viral in nature however patient is a smoker and will be started on azithromycin at this time. She will be given a prescription for albuterol inhaler as well. Patient was encouraged to follow-up with her primary doctor, continue symptom management with Tylenol or ibuprofen as needed as directed for body aches or fevers. She is encouraged to return to emergency department any new or worsening symptoms. Patient verbalized understanding of these instructions. Patient stable for discharge. Diagnosis Primary Impression: Bronchitis Referrals: Primary Care Physician 3 days Patient Instructions: Acute Bronchitis (ED), General Instructions Additional Instructions: Follow-up with your primary doctor Take medications as directed Continue symptom management, take [id number] acetaminophen or ibuprofen as needed and as directed for fevers and body aches Increase fluid intake Return to emergency department for any new or worsening symptoms Med/Other Pt SpecificInfo: Prescription(s) given Scripts Albuterol 18 GM Inh (Ventolin Hfa 18 GM Inh) 90 Mcg/Act Aer 2 PUFF INH Q4-6H Y for SHORTNESS OF BREATH, #1 INHALER 0 Refills Prov: Alona Villanueva 02/15/18 Ibuprofen (Ibuprofen) 800 Mg Tab 800 MG PO Q6HR Y for PAIN, #40 TAB 0 Refills Prov: Alona Villanueva 02/15/18 Azithromycin (Azithromycin) 250 Mg Tab 250 MG PO DIRECTED for Infection, #6 TAB 0 Refills Take 2 tabs (500 mg) on day 1 then 1 tab daily x 4 days. Prov: Alona Villanueva 02/15/18 Disposition: 01 DISCHARGE HOME Condition: Stable Alona Villanueva February 15, 2018 19:19
--- NOTE | 2018-02-15 20:01 | RADRPT ---
EXAM DATE: 02/15/2018 7:36 PM EDT AGE/SEX: 37 years / Female INDICATIONS: Cough, shortness of breath and chest pain. CLINICAL DATA: This is the patient's initial encounter. Patient reports that signs and symptoms have been present for 4 - 6 days and indicates a pain score of 4/10. MEDICAL/SURGICAL HISTORY: Diabetes mellitus type II. None. COMPARISON: [facility], CHEST PA & LAT, 01/02/2017. . FINDINGS: PA and lateral views of the chest demonstrate the lungs to be symmetrically aerated without evidence of mass, infiltrate or effusion. The cardiomediastinal contours are unremarkable. Osseous structures are intact. CONCLUSION: No active disease. Electronically signed by: Elmer Castorena MD 02/15/2018 7:59 PM EDT
[2018-02-15 20:05] LABS: AUTOMATED NEUTROPHIL # 10.4 TH/MM3 (1.8-7.7); BASOPHIL # 0.1 TH/MM3 (0-0.2); BASOPHIL % 0.7 % (0.0-2.0); EOSINOPHIL # 0.3 TH/MM3 (0-0.4); EOSINOPHIL % 2.2 % (0.0-4.0); HEMATOCRIT 42.7 % (35.0-46.0); HEMOGLOBIN 14.5 GM/DL (11.6-15.3); LYMPH % 18.8 % (9.0-44.0); LYMPHOCYTE # 2.7 TH/MM3 (1.0-4.8); MEAN CORPUSCULAR HEMOGLOBIN 31.7 PG (27.0-34.0); MEAN CORPUSCULAR HGB CONC 34.1 % (32.0-36.0); MONO % 6.6 % (0.0-8.0); NEUT % 71.7 % (16.0-70.0); PLATELET COUNT 253 TH/MM3 (150-450); RED BLOOD COUNT 4.59 MIL/MM3 (4.00-5.30); RED CELL DISTRIBUTION WIDTH 12.7 % (11.6-17.2); WHITE BLOOD COUNT 14.5 TH/MM3 (4.0-11.0)
[2018-02-15 20:15] LABS: ALT (GPT) 64 U/L (10-53)
[2018-02-15 20:17] LABS: ALKALINE PHOSPHATASE 135 U/L (45-117); TOTAL BILIRUBIN ADULT 0.4 MG/DL (0.2-1.0); TOTAL PROTEIN 7.6 GM/DL (6.4-8.2)
[2018-02-15 20:18] LABS: ALBUMIN 3.9 GM/DL (3.4-5.0); AST (GOT) 38 U/L (15-37); BICARBONATE 27.5 MEQ/L (21.0-32.0); BLOOD UREA NITROGEN 9 MG/DL (7-18); CALCIUM 9.4 MG/DL (8.5-10.1); CHLORIDE 102 MEQ/L (98-107); CREATININE 0.97 MG/DL (0.50-1.00); GLOMERULAR FILTRATION RATE 65 ML/MIN (>89); GLUCOSE,RANDOM 214 MG/DL (74-106); SODIUM (NA) 139 MEQ/L (136-145)
[2018-02-15] MEDS ORDERED: VENTAER INH (20:38)
[2018-02-15] MEDS ORDERED: AZIT250T3 PO (20:38)
[2018-02-15] MEDS ORDERED: IBUP1TAB7 PO (20:38)
== END 2018-02-15 21:02 | disposition home or self-care (01) ==
LOC: NEPD 18:28
DX: J40 Bronchitis, not specified as acute or chronic (principal); F41.9 Anxiety disorder, unspecified; F32.9 Major depressive disorder, single episode, unspecified; E11.9 Type 2 diabetes mellitus without complications; F17.200 Nicotine dependence, unspecified, uncomplicated
CPT/HCPCS: 71046; 80053; 85025; 87081; 87804; 87880; 96360; 99284; J7030